=== PATIENT | female | born 1945 | race Caucasian/White ===

== ENCOUNTER 2020-03-28 09:24 | Outpatient (REF) | payer MEDICARE, SELFPAY ==
[2020-03-28 11:46] LABS: Alanine Aminotransferase 32 U/L (0-31); Albumin Level 4.4 g/dL (3.5-5.0); Alkaline Phosphatase 86 U/L (39-117); Anion Gap 15 (12-20); Aspartate Amino Transferase 40 U/L (5-31); Bilirubin Total 0.5 mg/dL (0.0-1.0); Blood Urea Nitrogen 32 mg/dL (9-16); Calcium 9.3 mg/dL (8.4-10.2); Carbon Dioxide 27 mmol/L (22-29); Chloride 102 mmol/L (96-108); Cholesterol 201 mg/dL; Estimated Glomerular Filt Rate 35; Glucose Fasting 104 mg/dL (60-99); HDL Cholesterol 79 mg/dL; LDL Cholesterol Calculated 105 mg/dl; Sodium 139 mmol/L (135-145); Total Protein 7.1 g/dL (6.5-8.0); Triglycerides 89 mg/dL
[2020-03-28 12:08] LABS: Hematocrit 32.4 % (37-47); Hemoglobin 10.5 g/dl (12.0-16.0); Mean Corpuscular HGB Conc 32.4 g/dl (31.0-35.0); Mean Corpuscular Hemoglobin 33.3 pg (27.0-33.0); Mean Corpuscular Volume 102.9 fL (80-98); Mean Platelet Volume 11.5 fL (9.4-12.3); Platelet Count 168 X10*3/uL (160-400); Red Blood Count 3.15 X10*6/uL (4.20-5.50); Red Cell Distribution Width 13.2 % (11.0-16.0)
[2020-03-28 12:09] LABS: Thyroid Stimulating Hormone 1.57 mIU/mL (0.32-4.0); WBC ABN SCTR FOR CBC 1
[2020-03-28 12:49] LABS: White Blood Count 5.6 X10*3/uL (4.8-10.8)
[2020-03-28 12:57] LABS: Lymphocytes Absolute Manual 2.3 X10*3/uL (0.6-4.8); Lymphocytes Percent Manual 41 % (20-40); Monocytes Absolute Manual 1.1 X10*3/uL (0.0-1.2); Monocytes Percent Manual 19 % (2-11); Neutrophils Percent Manual 40 % (45-73)
[2020-03-28 12:58] LABS: Band Neutrophils Percent 0 % (3-5); Neutrophils Absolute Manual 2.2 X10*3/uL (2.2-7.9); Platelet Estimate NORMAL (NORMAL)
[2020-03-28 12:59] LABS: Hypochromasia 1+; Macrocytosis 1+; Platelet Morphology Comment NORMAL; RBC Morphology NOTED
== END 2020-03-28 09:25 | disposition home or self-care (01) ==
LOC: HO.HMGCLDS 09:24
PROVIDERS: PCP Internal Medicine; Visit Provider Internal Medicine
DX: I10 Essential (primary) hypertension (principal); I87.2 Venous insufficiency (chronic) (peripheral)
CPT/HCPCS: 36415; 80053; 80061; 84443; 85007; 85025; 85027

== ENCOUNTER 2020-05-30 10:20 | Outpatient (REF) | payer MEDICARE, SELFPAY ==
[2020-05-30 11:28] LABS: Eosinophils Percent Auto 0.2 % (0-4); Hematocrit 31.6 % (37-47); Hemoglobin 10.1 g/dl (12.0-16.0); Imm Gran Abs Auto 0.09 X10*3/uL (0.00-0.03); Imm Gran Pct Auto 1.5 % (0.0-0.4); Lymphocytes Absolute Auto 2.8 X10*3/uL (1.2-4.9); Lymphocytes Percent Auto 46.2 % (20-40); MANUAL DIFF FLAG SCAN; Mean Corpuscular Hemoglobin 31.8 pg (27.0-33.0); Mean Corpuscular Volume 99.4 fL (80-98); Mean Platelet Volume 11.6 fL (9.4-12.3); Monocytes Absolute Auto 1.2 X10*3/uL (0.1-1.2); Monocytes Percent Auto 20.2 % (2-11); Neutrophils Absolute Auto 1.9 X10*3/uL (2.0-8.3); Neutrophils Percent Auto 31.9 % (45-73); Platelet Count 157 X10*3/uL (160-400); Red Blood Count 3.18 X10*6/uL (4.20-5.50); Red Cell Distribution Width 13.7 % (11.0-16.0); SCAN SMEAR FLAG 1
[2020-05-30 11:51] LABS: Alanine Aminotransferase 18 U/L (0-31); Albumin Level 4.2 g/dL (3.5-5.0); Alkaline Phosphatase 96 U/L (39-117); Anion Gap 18 (12-20); Aspartate Amino Transferase 19 U/L (5-31); Bilirubin Total 0.5 mg/dL (0.0-1.0); Blood Urea Nitrogen 19 mg/dL (9-16); Calcium 8.6 mg/dL (8.4-10.2); Carbon Dioxide 21 mmol/L (22-29); Chloride 108 mmol/L (96-108); Estimated Glomerular Filt Rate 52; Glucose Random 112 mg/dL (60-115); Potassium 4.5 mmol/l (3.3-5.1); Sodium 142 mmol/L (135-145)
[2020-05-30 12:21] LABS: Folate 3.9 ng/mL (> or = 4.0); Vitamin B12 269 pg/mL (200-900)
[2020-05-30 12:29] LABS: SLIDE REVIEW VERIFIED
[2020-05-30 14:12] LABS: Glucose Urine UA NEG (NEG); Leukocyte Esterase Urine 1+ (NEG); Nitrite Urine POS (NEG); Specific Gravity - Urine 1.025 (1.005-1.025); Urine Blood NEG (NEG); Urine Ketones NEG (NEG); Urine Protein NEG (NEG-TRACE)
[2020-05-30 14:14] LABS: Appearance Urine HAZY; Color Urine YELLOW
[2020-05-30 14:24] LABS: Bacteria Urine 3+ /LPF; RBC Urine 0 /HPF (0); Squamous Epithelial Cell Urine 4+ /LPF
== END 2020-05-30 10:21 | disposition home or self-care (01) ==
LOC: HO.HMGCLDS 10:20
PROVIDERS: PCP Internal Medicine; Visit Provider Internal Medicine
DX: I87.2 Venous insufficiency (chronic) (peripheral) (principal); I10 Essential (primary) hypertension; E66.01 Morbid (severe) obesity due to excess calories
CPT/HCPCS: 36415; 80053; 81001; 82607; 82746; 85025

== ENCOUNTER 2020-11-05 08:54 | Day surgery (SDC) | payer MEDICARE, SELFPAY ==
[2020-10-30 13:04] VITALS: BMI 36.8
--- NOTE | 2020-10-31 15:24 | MHC.SHP ---
Pre-Procedural Eval Section A The patient is an INPATIENT: No The History & Physical has been completed within 30 days and I have reviewed it.: Yes Section B Chief Complaint: Cataract Right Eye Allergies: Allergies Allergy/AdvReac Type Severity Reaction Status Date / Time Sulfa (Sulfonamide Allergy Unknown HIVES Unverified 10/30/20 12:55 Antibiotics) [SULFA (SULFONAMIDE ANTIBIOTICS)] Plan Diagnosis/Plan: Unchanged I have reviewed the history and physical and performed a pertinent physical examination on my patient. No changes have occurred unless specified.
--- NOTE | 2020-11-02 09:32 | P.CONAN_ITS ---
Documented by User: Sybil Ramseyney 11/02/20 09:34 HPI - Anesthesia Eval Consult details Narrative: 75yo F for Right Cataract Extraction IOL Insertion PCP cleared No previous cataract on record PMFSH Past Medical History Medical History Basal cell carcinoma (BCC) of face CAD (coronary artery disease) COVID-19 vaccine series completed Elevated cholesterol Glaucoma HTN (hypertension) Low back pain Neuropathy Obesity Osteoarthritis Osteopenia Spinal stenosis Venous insufficiency Surgical History Surgical History History of bilateral YAG laser iridotomy History of lumpectomy of left breast History of surgery History of total right knee replacement (TKR) Hx of arthroscopy of left knee Hx of cholecystectomy S/p bilateral myringotomy with tube placement Social History Social History Are you a primary career orientation teacher to a significant other at home: No Do you presently have visiting nurse or other home services: No Patient Tobacco Use Status: Former Tobacco user Quit Date: 37 yrs ago Tobacco use type: Cigarette Use of substances other than those prescribed or required for medical reasons: No Have you been hit, kicked, punched, or otherwise hurt by someone within the past year? If so, by whom?: No Are you DNR?: No Advance Directives: No Advance Directives Information Provided: No Advance Directives on File: No Recently lost weight without trying: No Eating poorly because of decreased appetite: No Nutrition Risks: No Nutritional Risk Patient : No Meds Allergies Allergy/AdvReac Type Severity Reaction Status Date / Time Sulfa (Sulfonamide Allergy Unknown HIVES Verified 11/05/20 09:47 Antibiotics) [SULFA (SULFONAMIDE ANTIBIOTICS)] Home Medications Medication Instructions Recorded Confirmed Last Taken Type aspirin [Aspir-81] 81 mg PO DAILY 10/30/20 10/30/20 Unknown History cholestyramine-aspartame 1 packet PO DAILY 10/30/20 10/30/20 Unknown History [Prevalite] furosemide 2 tab PO DAILY 10/30/20 10/30/20 Unknown History ibuprofen 1 tab PO TID PRN 10/30/20 10/30/20 Unknown History lisinopril 1 tab PO DAILY 10/30/20 10/30/20 11/05/20 07:15 History multivitamin 1 tab PO DAILY 10/30/20 10/30/20 Unknown History Exam Exam Date and Time: November 02, 2020 0932 Height,Weight and Vital Signs: Height 5 ft 3 in Weight 94.347 kg Assessment and Plan Assessment Anesthesia Assessment: Chart Reviewed Documented by User: Rishi Sanchez 11/05/20 09:50 PMFSH Past Medical History Medical History Basal cell carcinoma (BCC) of face CAD (coronary artery disease) COVID-19 vaccine series completed Elevated cholesterol Glaucoma HTN (hypertension) Low back pain Neuropathy Obesity Osteoarthritis Osteopenia Spinal stenosis Venous insufficiency Surgical History Surgical History History of bilateral YAG laser iridotomy History of lumpectomy of left breast History of surgery History of total right knee replacement (TKR) Hx of arthroscopy of left knee Hx of cholecystectomy S/p bilateral myringotomy with tube placement Social History Social History Are you a primary career orientation teacher to a significant other at home: No Do you presently have visiting nurse or other home services: No Patient Tobacco Use Status: Former Tobacco user Quit Date: 37 yrs ago Tobacco use type: Cigarette Use of substances other than those prescribed or required for medical reasons: No Have you been hit, kicked, punched, or otherwise hurt by someone within the past year? If so, by whom?: No Are you DNR?: No Advance Directives: No Advance Directives Information Provided: No Advance Directives on File: No Recently lost weight without trying: No Eating poorly because of decreased appetite: No Nutrition Risks: No Nutritional Risk Patient : No Meds Allergies Allergy/AdvReac Type Severity Reaction Status Date / Time Sulfa (Sulfonamide Allergy Unknown HIVES Verified 11/05/20 09:47 Antibiotics) [SULFA (SULFONAMIDE ANTIBIOTICS)] Home Medications Medication Instructions Recorded Confirmed Last Taken Type aspirin [Aspir-81] 81 mg PO DAILY 10/30/20 10/30/20 Unknown History cholestyramine-aspartame 1 packet PO DAILY 10/30/20 10/30/20 Unknown History [Prevalite] furosemide 2 tab PO DAILY 10/30/20 10/30/20 Unknown History ibuprofen 1 tab PO TID PRN 10/30/20 10/30/20 Unknown History lisinopril 1 tab PO DAILY 10/30/20 10/30/20 11/05/20 07:15 History multivitamin 1 tab PO DAILY 10/30/20 10/30/20 Unknown History Exam Airway Mallampati Class: II TM Dist: >3cm Neck ROM: Full Loose/Missing/Broken Teeth: No Heart: rrr+[id number] Lungs: cta b/l Assessment and Plan Assessment Anesthesia Assessment: Anesthesia Plan Discussed, PAT Visit and Chart Reviewed Final Anesthetic Review NPO: Yes ASA Class: II Final Preanesthetic Review: No Changes in Pt Med Stat, Meds/Allgs Chart Reviewed, Consent Obtained/Reviewed and Anes Risks/Benef Reviewed Patient Risk: Low Procedure Risk: Low Assessment/Block/Sedation in SS: Assess/Block/Sedation-SS Anesthetic Plan Anesthetic Plan: MAC: and Agree w/ Assess. and Plan Disposition: Standard PACU
[2020-11-05 09:49] VITALS: BP 177/74; PULSE 91; RESP 18; TEMP 36.4; O2SAT 98
[2020-11-05] MEDS: Tetracaine HCl/PF 0.5% Oph Sol 4 ML DROPS 1 DROP EYE-RIGHT (10:03)
[2020-11-05] MEDS: Tropicamide 1 % Ophth Sol 3 ML BTL 1 DROP EYE-RIGHT ×3 (10:04→10:11)
[2020-11-05] MEDS: Phenylephrine HCL 2.5% Oph SoL 2 ML BOTTLE 1 DROP EYE-RIGHT ×3 (10:06→10:14)
[2020-11-05] MEDS: Lactated Ringers 500 ML 50 ML IV (10:15)
--- NOTE | 2020-11-05 10:36 | P.PCNO_ITS ---
Ophthalmology Procedure Procedure Date of Service: 11/05/20 Ophthalmology Viscoelastic: Healon Duet Dual Pack Pro Ophthalmology Lenses: TECISRAEL [id number] (27) Procedure Notes: PREOPERATIVE DIAGNOSIS: Decreased visual acuity right eye secondary to cataract POSTOPERATIVE DIAGNOSIS: Same PROCEDURE: Right cataract extraction with intraocular lens insertion & Synichialysis with Malyugin Ring SURGEON: James Guevara M.D. ANESTHESIA: Topical/MAC ESTIMATED BLOOD LOSS: None COMPLICATIONS: None After obtaining informed consent, the patient was brought to the operating room suite and placed in the supine position. After adequate sedation per anesthesia, topical drops of Tetracaine were given to the right eye. The eye was then prepped and draped in the usual sterile fashion. The operating room microscope was then positioned over the operative eye and a lid speculum placed. A paracentesis was created. Synichiae prevented pupil dilation, 1% MPF Lidocaine was instilled into the anterior chamber followwed by placement of the Mallugin Ring. Viscoelastic was then instilled into the anterior chamber. A three plane incision was then created temporally, utilizing a 2.85 mm keratome. Capsulotomy forceps were then utilized to create a circular tear capsulotomy. Hydrodissecti on and hydrodelineation were carried out until adequate mobilization of the nucleus occurred. Phacoemulsification was then utilized to remove the dense central nucleus followed by removal of the cortical material utilizing the automated aspiration irrigation unit. Viscoelastic was instilled into the posterior capsular bag followed by placement of a posterior chamber intraocular lens without difficulty.The Malyugin Ring was removed. The residual Viscoelastic was then removed \utilizing the automated IAmachine. The wound was checked and found to be watertight. The patient tolerated theprocedure well and the lid speculum was removed. Intracameral injection of Vigamox0.1 mL followed by a subtenon injection of Kenalog-40 0.2 mL were administered. Thepatient will be seen in the a.m.
[2020-11-05 11:05] VITALS: BP 178/80; PULSE 85; RESP 16; TEMP 36.1; O2SAT 99
== END 2020-11-05 11:19 | disposition home or self-care (01) ==
PROVIDERS: PCP Internal Medicine; Visit Provider Ophthalmology
PROC: (CPT 66985; principal; 2020-11-05 11:20)
DX: H25.11 Age-related nuclear cataract, right eye (principal); I10 Essential (primary) hypertension; Z88.2 Allergy status to sulfonamides
CPT/HCPCS: 66982; J3300; V2632

== ENCOUNTER 2020-11-19 09:50 | Day surgery (SDC) | payer MEDICARE, SELFPAY ==
[2020-10-30 13:12] VITALS: BMI 36.8
--- NOTE | 2020-11-15 08:00 | MHC.SHP ---
Pre-Procedural Eval Section A The patient is an INPATIENT: No The History & Physical has been completed within 30 days and I have reviewed it.: Yes Section B Chief Complaint: Cataract Left Eye Allergies: Allergies Allergy/AdvReac Type Severity Reaction Status Date / Time Sulfa (Sulfonamide Allergy Unknown HIVES Verified 11/05/20 09:47 Antibiotics) [SULFA (SULFONAMIDE ANTIBIOTICS)] Plan Diagnosis/Plan: Unchanged I have reviewed the history and physical and performed a pertinent physical examination on my patient. No changes have occurred unless specified.
[2020-11-19 12:24] VITALS: BP 136/69; PULSE 73; RESP 18; TEMP 36.1; O2SAT 99
[2020-11-19] MEDS: Tetracaine HCl/PF 0.5% Oph Sol 4 ML DROPS 1 DROP EYE-LEFT (12:43)
[2020-11-19] MEDS: Tropicamide 1 % Ophth Sol 3 ML BTL 1 DROP EYE-LEFT ×3 (12:44→12:56)
--- NOTE | 2020-11-19 12:45 | P.CONAN_ITS ---
[facility] Past Medical History Medical History Basal cell carcinoma (BCC) of face CAD (coronary artery disease) COVID-19 vaccine series completed Elevated cholesterol Glaucoma HTN (hypertension) Low back pain Neuropathy Obesity Osteoarthritis Osteopenia Spinal stenosis Venous insufficiency Surgical History Surgical History History of bilateral YAG laser iridotomy History of lumpectomy of left breast History of surgery History of total right knee replacement (TKR) Hx of arthroscopy of left knee Hx of cholecystectomy S/p bilateral myringotomy with tube placement Social History Social History Are you a primary primary care provider to a significant other at home: No Do you presently have visiting nurse or other home services: No Patient Tobacco Use Status: Former Tobacco user Quit Date: 37 yrs ago Tobacco use type: Cigarette Use of substances other than those prescribed or required for medical reasons: No Have you been hit, kicked, punched, or otherwise hurt by someone within the past year? If so, by whom?: No Are you DNR?: No Advance Directives: No (unknown) Advance Directives Information Provided: No Recently lost weight without trying: No Eating poorly because of decreased appetite: No Nutrition Risks: No Nutritional Risk Meds Allergies Allergy/AdvReac Type Severity Reaction Status Date / Time Sulfa (Sulfonamide Allergy Intermediate HIVES Verified 11/19/20 12:08 Antibiotics) [SULFA (SULFONAMIDE ANTIBIOTICS)] Active Medications: Current Medications Generic Name Dose Route Start Last Admin Trade Name Freq PRN Reason Stop Dose Admin Lactated Ringer's 500 mls @ 50 mls/hr 11/19/20 12:45 Lr IV 11/19/20 22:44 .Q10H KEVIN Povidone Iodine 1 appl 11/19/20 12:05 Povidone Iodine 5 % Ophth Soln 30 Ml Bottle EYE-LEFT PREOP PRN Pre-Op Surgical Implant Prophy Home Medications Medication Instructions Recorded Confirmed Last Taken Type aspirin [Aspir-81] 81 mg PO DAILY 10/30/20 10/30/20 11/18/20 07:30 History cholestyramine-aspartame 1 packet PO DAILY 10/30/20 10/30/20 Unknown History [Prevalite] furosemide 2 tab PO DAILY 10/30/20 10/30/20 Unknown History ibuprofen 1 tab PO TID PRN 10/30/20 10/30/20 11/01/20 History lisinopril 1 tab PO DAILY 10/30/20 10/30/20 11/19/20 07:30 History multivitamin 1 tab PO DAILY 10/30/20 10/30/20 Unknown History Exam Exam Date and Time: November 19, 2020 1245 Height,Weight and Vital Signs: Height 5 ft 3 in Weight 94.347 kg Last Vital Signs Temp 97.0 F 11/19/20 12:24 Pulse 73 11/19/20 12:24 Resp 18 11/19/20 12:24 BP 136/69 11/19/20 12:24 Pulse Ox 99 11/19/20 12:24 Airway Mallampati Class: II TM Dist: >3cm Neck ROM: Full Heart: rrr Lungs: cta Assessment and Plan Assessment Anesthesia Assessment: Anesthesia Plan Discussed and Chart Reviewed Final Anesthetic Review NPO: Yes ASA Class: II Final Preanesthetic Review: No Changes in Pt Med Stat and Consent Obtained/Reviewed Patient Risk: Intermediate Procedure Risk: Intermediate Anesthetic Plan Anesthetic Plan: MAC: Disposition: Standard PACU
[2020-11-19] MEDS: Phenylephrine HCL 2.5% Oph SoL 2 ML BOTTLE 1 DROP EYE-LEFT ×3 (12:48→13:00)
[2020-11-19] MEDS: Lactated Ringers 500 ML 50 ML IV (12:59)
--- NOTE | 2020-11-19 13:47 | HO.PNOPHT ---
Ophthalmology Procedure Procedure Date of Service: 11/19/20 Ophthalmology Viscoelastic: Healon Duet Dual Pack Pro Ophthalmology Lenses: TECISRAEL [id number] (28.5) Procedure Notes: PREOPERATIVE DIAGNOSIS: Decreased visual acuity left eye secondary to cataract POSTOPERATIVE DIAGNOSIS: Same PROCEDURE: Left cataract extraction with intraocular lens insertion SURGEON: James Guevara M.D. ANESTHESIA: Topical/MAC ESTIMATED BLOOD LOSS: None COMPLICATIONS: None After obtaining informed consent, the patient was brought to the operation room suite and placed in the supine position. After adequate sedation per anesthesia, topical drops of Tetracaine were given to the left eye. The eye was then prepped and draped in the usual sterile fashion. The operating room microscope was then positioned over the operative eye and a lid speculum placed. A paracentesis was created. Viscoelastic was then instilled into the anterior chamber. A three plane incision was then created temporally, utilizing a 2.85 mm keratome. Capsulotomy forceps were then utilized to create a circular tear capsulotomy. Hydrodissection and hydrodelineation were carried out until adequate mobilization of the nucleus occurred. Phacoemulsification was then utilized to remove the dense central nucleus followed by removal of the cortical material utilizing the automated aspiration irrigation unit. Viscoat elastic was instilled into the posterior capsular bag followed by placement of a posterior chamber intraocular lens without difficulty. The residual Viscoat elastic was then removed utilizing the automated IA machine. The wound was check and found to be watertight. The patient tolerated the procedure well and the lid speculum was removed. Intracameral injection of Vigamox 0.1 mL followed by a subtenon injection of Kenalog-40 0.2 mL were administered. The patient will be seen in the a.m.
[2020-11-19 14:13] VITALS: BP 156/83; PULSE 68; RESP 16; TEMP 36.1; O2SAT 100
== END 2020-11-19 14:32 | disposition home or self-care (01) ==
PROVIDERS: PCP Internal Medicine; Visit Provider Ophthalmology
PROC: (CPT 66985; principal; 2020-11-19 13:10)
DX: H25.12 Age-related nuclear cataract, left eye (principal); H40.213 Acute angle-closure glaucoma, bilateral; H52.4 Presbyopia; I10 Essential (primary) hypertension; I87.2 Venous insufficiency (chronic) (peripheral); Z66 Do not resuscitate; E53.8 Deficiency of other specified B group vitamins; Z79.82 Long term (current) use of aspirin; Z79.899 Other long term (current) drug therapy; Z88.2 Allergy status to sulfonamides; Z87.891 Personal history of nicotine dependence
CPT/HCPCS: 66984; J2250; J3010; J3300; V2632

== ENCOUNTER 2021-01-31 11:42 | Outpatient (REF) | payer MEDICARE, SELFPAY ==
--- NOTE | ~2021-01-31 | MM_ITS ---
EXAMINATION: MM SCREENING DIGITAL BREAST TOMOSYNTHESIS, BILATERAL CLINICAL INFORMATION: Screening. Asymptomatic. The lifetime risk of breast cancer based on the Tyrer-Cuzick Model is 2%. COMPARISON: Mammography: 08/05/2018, 07/21/2017, 07/06/2017, 06/05/2016; targeted left breast ultrasound 07/21/2017 TECHNIQUE: Digital breast tomosynthesis is performed in both the craniocaudal and mediolateral oblique views along with computer-aided detection (CAD). Synthesized 2D images are generated from the tomosynthesis. FINDINGS: There are scattered areas of fibroglandular density (ACR BI-RADS breast composition Category b). There is a fine fibronodular parenchymal pattern similar to prior exams. There is no developing density or architectural abnormality or significant mass. Scattered bilateral round and vascular calcifications are again seen. There is a group of uniform benign-appearing round calcifications mid upper outer right breast. The axilla and skin contours are unremarkable. There are no significant changes from prior study. MM/MM tomosynthesis screening BI IMPRESSION: No mammographic evidence of malignancy. ASSESSMENT: BI-RADS 2: Benign RECOMMENDATION: Routine annual mammography screening. This patient's information was entered into a reminder system with a target due date for their next mammogram.
== END 2021-01-31 11:43 | disposition home or self-care (01) ==
LOC: HO.MAMMO 11:42
PROVIDERS: Visit Provider Internal Medicine
DX: Z12.31 Encounter for screening mammogram for malignant neoplasm of breast (principal)
CPT/HCPCS: 77063; 77067

== ENCOUNTER 2021-02-01 11:19 | Outpatient (REF) | payer MEDICARE, SELFPAY ==
[2021-02-01 14:22] LABS: MANUAL DIFF FLAG NO
[2021-02-01 14:27] LABS: Eosinophils Percent Auto 0.2 % (0-4); Hematocrit 30.4 % (37-47); Hemoglobin 9.8 g/dl (12.0-16.0); Imm Gran Abs Auto 0.06 X10*3/uL (0.00-0.03); Imm Gran Pct Auto 0.9 % (0.0-0.4); Lymphocytes Absolute Auto 2.4 X10*3/uL (1.2-4.9); Lymphocytes Percent Auto 37.5 % (20-40); Mean Corpuscular HGB Conc 32.2 g/dl (31.0-35.0); Mean Corpuscular Hemoglobin 30.8 pg (27.0-33.0); Mean Corpuscular Volume 95.6 fL (80-98); Mean Platelet Volume 12.9 fL (9.4-12.3); Monocytes Absolute Auto 1.1 X10*3/uL (0.1-1.2); Monocytes Percent Auto 16.8 % (2-11); Neutrophils Absolute Auto 2.9 X10*3/uL (2.0-8.3); Neutrophils Percent Auto 44.6 % (45-73); Platelet Count 225 X10*3/uL (160-400); Red Blood Count 3.18 X10*6/uL (4.20-5.50); Red Cell Distribution Width 13.2 % (11.0-16.0); White Blood Count 6.5 X10*3/uL (4.8-10.8)
[2021-02-01 14:47] LABS: B Type Natriuretic Peptide 107 pg/mL (<100)
[2021-02-01 14:58] LABS: Alanine Aminotransferase 17 U/L (0-31); Albumin Level 4.7 g/dL (3.5-5.0); Alkaline Phosphatase 83 U/L (39-117); Anion Gap 17 (12-20); Aspartate Amino Transferase 18 U/L (5-31); Bilirubin Total 0.5 mg/dL (0.0-1.0); Blood Urea Nitrogen 59 mg/dL (9-16); Calcium 10.3 mg/dL (8.4-10.2); Carbon Dioxide 20 mmol/L (22-29); Chloride 106 mmol/L (96-108); Cholesterol 174 mg/dL; Estimated Glomerular Filt Rate 20; Glucose Fasting 100 mg/dL (60-99); HDL Cholesterol 50 mg/dL; LDL Cholesterol Calculated 107 mg/dl; Sodium 138 mmol/L (135-145); Total Protein 7.4 g/dL (6.5-8.0); Triglycerides 87 mg/dL
[2021-02-01 15:07] LABS: Thyroid Stimulating Hormone 1.11 uIU/mL (0.32-4.0); Vitamin D 25-OH Total 42.6 ng/mL (>30)
[2021-02-01 15:23] LABS: Folate > 20.0 ng/mL (> or = 4.0); Vitamin B12 614 pg/mL (200-900)
== END 2021-02-01 11:20 | disposition home or self-care (01) ==
LOC: HO.HMGCLDS 11:19
PROVIDERS: PCP Internal Medicine; Visit Provider Internal Medicine
DX: I87.2 Venous insufficiency (chronic) (peripheral) (principal); I10 Essential (primary) hypertension; E66.01 Morbid (severe) obesity due to excess calories; E53.8 Deficiency of other specified B group vitamins
CPT/HCPCS: 36415; 80053; 80061; 82306; 82607; 82746; 83880; 84443; 85025

== ENCOUNTER 2021-02-20 11:50 | Outpatient (REF) | payer MEDICARE, SELFPAY ==
[2021-02-20 13:53] LABS: MANUAL DIFF FLAG NO
[2021-02-20 14:03] LABS: Basophils Percent Auto 0.1 % (0-2); Eosinophils Percent Auto 0.5 % (0-4); Hemoglobin 8.9 g/dl (12.0-16.0); Imm Gran Abs Auto 0.08 X10*3/uL (0.00-0.03); Lymphocytes Percent Auto 50.8 % (20-40); Mean Corpuscular Hemoglobin 31.4 pg (27.0-33.0); Mean Corpuscular Volume 95.4 fL (80-98); Mean Platelet Volume 12.8 fL (9.4-12.3); Monocytes Absolute Auto 1.3 X10*3/uL (0.1-1.2); Monocytes Percent Auto 16.9 % (2-11); Neutrophils Absolute Auto 2.4 X10*3/uL (2.0-8.3); Neutrophils Percent Auto 30.7 % (45-73); Platelet Count 122 X10*3/uL (160-400); Red Blood Count 2.83 X10*6/uL (4.20-5.50); Red Cell Distribution Width 13.8 % (11.0-16.0); White Blood Count 7.9 X10*3/uL (4.8-10.8)
[2021-02-20 14:21] LABS: Alanine Aminotransferase 13 U/L (0-31); Albumin Level 4.2 g/dL (3.5-5.0); Alkaline Phosphatase 91 U/L (39-117); Anion Gap 18 (12-20); Aspartate Amino Transferase 14 U/L (5-31); Bilirubin Total 0.3 mg/dL (0.0-1.0); Blood Urea Nitrogen 58 mg/dL (9-16); Calcium 9.9 mg/dL (8.4-10.2); Carbon Dioxide 18 mmol/L (22-29); Chloride 107 mmol/L (96-108); Estimated Glomerular Filt Rate 25; Glucose Random 87 mg/dL (60-115); Potassium 5.1 mmol/L (3.3-5.1); Sodium 138 mmol/L (135-145); Total Protein 6.9 g/dL (6.5-8.0)
== END 2021-02-20 11:51 | disposition home or self-care (01) ==
LOC: HO.HMGCLDS 11:50
PROVIDERS: PCP Internal Medicine; Visit Provider Internal Medicine
DX: I10 Essential (primary) hypertension (principal); I87.2 Venous insufficiency (chronic) (peripheral)
CPT/HCPCS: 36415; 80053; 85025

== ENCOUNTER → 2021-02-22 09:36 | Outpatient (REF) | payer MEDICARE, SELFPAY ==
--- NOTE | 2021-02-22 09:30 | CA_ITS ---
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 The visually estimated ejection fraction is between 60-65%. - There is mild aortic valve stenosis. Findings Left Ventricle Normal left ventricular cavity size. There is mildly increased left ventricular wall thickness. The left ventricular systolic function is normal. The visually estimated ejection fraction is between 60-65%. There is no evidence of regional wall motion abnormalities. Diastolic function is normal for age. Right Ventricle Normal right ventricular cavity size and systolic function. Atria Both atria are normal in size. Aortic Valve There is mild calcification of the aortic valve. There is mild aortic valve stenosis. The peak aortic velocity is 2.50 m/s with a calculated peak gradient of 25 mmHg. The mean gradient is 14 mmHg. The aortic valve area is 1.47 cm2. There is trace (trivial) aortic valve regurgitation. Mitral Valve The mitral valve appears normal. There is trace mitral valve regurgitation. There is no mitral valve stenosis. Pulmonic Valve The pulmonic valve was not well visualized. Tricuspid Valve Normal tricuspid valve structure. There is trace tricuspid valve regurgitation. The pulmonary artery systolic pressure is normal. Great Vessels The asc aorta is normal in size. Venous The inferior vena cava is normal in size and collapses greater than 50% with inspiration. Pericardium/Pleural There is no evidence of pericardial effusion. Prior Study Comparison No significant change compared to prior study dated: 01/12/2015. Measurements 2D Linear Measurements IVSd: 1.22 0.6-0.9/0.6-1.0 cm LVIDd: 3.99 3.9-5.3/4.2-5.9 cm LVIDd Index: 2.07 2.4-3.2/2.2-3.1 cm/m2 LVIDs: 2.34 2.0-3.6 cm LVPWd: 1.27 0.7-1.1 cm Ao Root: 3.20 2.1-3.5 cm LA Diam: 3.60 2.7-3.8/3.0-4.0 cm LAIDs Index: 1.87 1.5-2.3 cm/m2 LV Mass: 216.92 67-162/88-224 g LV Mass Index: 112.39 43-95/49-115 g/m2 LVOT Diam: 2.00 3.0+(-)1.3 cm 2D Systolic Function EF 4C: 55.90 >55% EF 2C: 60.10 >55% EF BiP: 56.90 >55% Mitral Valve MV Pk E: 0.51 MV PK A: 0.73 MV Decel Time: 342.00 E/A: 0.70 E'Lateral: 6.42 E'Medial: 5.77 E/E' Med: 8.80 E/E' Lat: 7.90 PHT: 100.00 MVA PHT: 2.[address] [employer] [place] [employer]: 1.49 Aortic Valve AoV Pk Reinier: 2.50 AoV Mn Reinier: 1.72 AoV VTI: 0.55 AoV Pk Grad: 25.00 Aov Mn Grad: 14.00 ADA Cont.VTI: 1.47 LVOT LVOT Pk Reinier: 0.99 LVOT Mn Reinier: 0.64 LVOT VTI: 0.26 LVOT Pk Grad: 4.00 LVOT Mn Grad: 2.00 LVOT Diam: 2.00 LVOT Area: 3.14 Diastolic Function MV Pk E: 0.51 MV Pk A: 0.73 E/A: 0.70 E'Medial: 5.77 E/E' Med: 8.80 E' Laterial: 6.42 E/E' Lat: 7.90 Right Ventricle TAPSE (mm): 28.00 TVS' Reinier: 11.00 Tricuspid Valve TR Pk Reinier: 2.02 TR Pk Grad: 16.00 Great Vessels Aorta Ao Root-2D: 3.20 2.0-3.7 cm Ao Asc: 3.70 2.1-3.4 cm Pulmonary Valve PV Pk Reinier: 1.02 Peak PV Grad: 4.00 Updated in Other Vendor System with Status of Final Dante Koehler MD electronically signed on 02/22/2021 2:01:34 PM with status of Final
== END ==
LOC: HO.CARD 09:36
PROVIDERS: Visit Provider Internal Medicine
DX: I87.2 Venous insufficiency (chronic) (peripheral) (principal); I10 Essential (primary) hypertension; E66.01 Morbid (severe) obesity due to excess calories
CPT/HCPCS: 93306

== ENCOUNTER → 2021-04-01 14:53 | Outpatient (BNV) | payer MEDICARE, SELFPAY | PROVIDERS: PCP Internal Medicine; Referring Provider Internal Medicine; Visit Provider Internal Medicine | DX: D64.9 Anemia, unspecified (principal) | CPT/HCPCS: 99203; 99213; 99214; 99215 ==

== ENCOUNTER 2021-04-24 08:59 | Outpatient (REF) | payer MEDICARE, SELFPAY ==
--- NOTE | ~2021-04-24 | US_ITS ---
EXAMINATION: US ABDOMEN COMPLETE CLINICAL INFORMATION: Disorder of kidney and ureter. Renal insufficiency. CLL. COMPARISON: None TECHNIQUE: Real-time imaging of the abdominal viscera. FINDINGS: PANCREAS: Normal. ABDOMINAL AORTA: The proximal, mid, and distal segments are normal in caliber. INFERIOR VENA CAVA: Visualized portions are normal. LIVER: The liver is normal in size. The liver contour is normal. There is mild increased liver echogenicity. No focal hepatic lesion. There is no intrahepatic biliary duct dilatation seen. GALLBLADDER: Surgically absent. COMMON BILE DUCT: Normal in caliber measuring 0.6 cm in diameter. RIGHT KIDNEY: No hydronephrosis or renal calculi. The kidney measures 9.7 cm in maximum dimension. There is an anechoic cyst in midpole measuring 2.3 x 2.0 x 2.2 cm. No additional cyst, solid mass or hydronephrosis seen. LEFT KIDNEY: There is mild increased left cortical echogenicity. No hydronephrosis. No renal calculi or focal parenchymal lesions. The kidney measures 9.0 cm in maximum dimension. SPLEEN: Normal. The spleen measures 9.5 cm in maximum dimension. FREE FLUID: None. US/US abdomen complete IMPRESSION: 1. Hepatic steatosis without focal lesion. 2. Midpole right renal cyst. Echogenic right renal cortex. 3. No splenomegaly. 4. Rest of the abdominal ultrasound is unremarkable.
== END 2021-04-24 09:00 | disposition home or self-care (01) ==
LOC: HO.HMGCX 08:59
PROVIDERS: PCP Internal Medicine; Visit Provider Internal Medicine
DX: N28.9 Disorder of kidney and ureter, unspecified (principal)
CPT/HCPCS: 76700

== ENCOUNTER 2021-05-03 12:02 | Day surgery (SDC) | payer MEDICARE, SELFPAY ==
--- NOTE | ~2021-05-03 | CT_ITS ---
PROCEDURE: CT GUIDED BIOPSY CLINICAL INFORMATION: CLL COMPARISON: None TECHNIQUE: Following explaining CT bone marrow biopsy procedure, benefits and risk, a written consent was obtained. Patient was placed prone and CT imaging was performed. Markers were placed along the posterior iliac spine on the left. An optimal site was selected and marked on the skin. Marked site was cleaned and draped in the sterile manner. 1% lidocaine was administered at the puncture site. Through a small skin incision a 16-gauge guide needle was advanced from right to left approach into the left posterior iliac spine. The needle was drilled into the proximal posterior iliac spine bone marrow. Two bone marrow aspirations were performed with EDTA and heparin in each syringe. Subsequently a core biopsy was obtained coaxially. Postprocedure the guide needle was withdrawn and complete hemostasis achieved at puncture site. Conscious sedation was administered for 18 minutes with the patient monitored by the IR nurse and radiologist. This CT examination was performed using dose optimization techniques as appropriate, variously including the following: *Automated exposure control *Adjustment of mA and/or kV according to patient size (this includes techniques or standardized protocols for targeted exams where dose is matched to indication/reason for exam; i.e. extremities or head) *Use of iterative reconstruction technique DLP: 187 mGy-cm FINDINGS: On preliminary prone CT imaging no gross bony abnormality seen involving the pelvic or the sacral bones. No abnormality seen within the pelvis soft tissues except for mild sigmoid diverticulosis. CT fluoroscopy-guided two bone marrow aspirations and a core biopsy performed. CT/CT biopsy aspirate bone marrow IMPRESSION: Successful CT fluoroscopy-guided two bone marrow aspirations and core biopsy performed through the left posterior iliac crest area.
[2021-05-03 12:12] VITALS: BMI 34.3
[2021-05-03 12:24] LABS: Prothrombin Time 11.1 SEC (9.9-13.0)
[2021-05-03 12:27] LABS: Partial Thromboplastin Time 34.2 SEC (24.1-38.0)
[2021-05-03 14:58] VITALS: BP 122/52; PULSE 67; RESP 16; TEMP 36.3; O2SAT 99
[2021-05-03 15:13] VITALS: BP 114/53; PULSE 67; RESP 16; O2SAT 98
[2021-05-03 15:17] LABS: Bone Marrow SEE SEPARATE REPORT
[2021-05-03 15:30] VITALS: BP 129/55; PULSE 65; RESP 16; O2SAT 98
[2021-05-03 15:41] LABS: MANUAL DIFF FLAG NO
[2021-05-03 15:43] LABS: Basophils Percent Auto 0.1 % (0-2); Hematocrit 29.1 % (37.0-47.0); Hemoglobin 9.4 g/dl (12.0-16.0); Imm Gran Abs Auto 0.04 X10*3/uL (0.00-0.03); Imm Gran Pct Auto 0.6 % (0.0-0.4); Lymphocytes Absolute Auto 3.4 X10*3/uL (1.2-4.9); Lymphocytes Percent Auto 48.2 % (20-40); Mean Corpuscular HGB Conc 32.3 g/dl (31.0-35.0); Mean Corpuscular Hemoglobin 30.7 pg (27.0-33.0); Mean Corpuscular Volume 95.1 fL (80.0-98.0); Monocytes Absolute Auto 1.2 X10*3/uL (0.1-1.2); Monocytes Percent Auto 16.2 % (2-11); Neutrophils Absolute Auto 2.5 x10*3/uL (2.0-8.3); Neutrophils Percent Auto 34.9 % (45-73); Platelet Count 219 X10*3/uL (160-400); Red Blood Count 3.06 X10*6/uL (4.20-5.50); Red Cell Distribution Width 13.5 % (11.0-16.0); White Blood Count 7.1 X10*3/uL (4.8-10.8)
[2021-05-03 15:45] VITALS: BP 127/59; PULSE 68; RESP 16; O2SAT 99
[2021-05-03 16:00] VITALS: BP 116/58; PULSE 64; RESP 16; O2SAT 99
[2021-05-03 16:27] VITALS: BP 117/55; PULSE 68; RESP 16; TEMP 36.3; O2SAT 99
== END 2021-05-03 16:30 | disposition home or self-care (01) ==
PROVIDERS: Radiology Diagnostic Radiology; PCP Internal Medicine; Visit Provider Internal Medicine
DX: C91.10 Chronic lymphocytic leukemia of B-cell type not having achieved remission (principal); Z66 Do not resuscitate
CPT/HCPCS: 36415; 38221; 38222; 85025; 85097; 85610; 85730; 88184; 88185; 88237; 88264; 88305; 88311; 88313; 88341; 88342; 99152; J1642; J2250; J3010

== ENCOUNTER 2021-05-07 09:03 | Outpatient (REF) | payer MEDICARE, SELFPAY ==
--- NOTE | ~2021-05-07 | PE_ITS ---
EXAMINATION: Fluorine-18 FDG PET/CT Scan CLINICAL INDICATION: Initial treatment management. CLL, staging. PROCEDURE: 60 minutes following the intravenous administration of 16.5 mCi of fluorine 18 FDG, images from the base of the skull to the mid thighs were obtained using a combined PET/CT scanner with CT scan based attenuation correction. No oral contrast was administered. No intravenous contrast was administered. Transverse, coronal, sagittal, and volume reconstruction projections were obtained. The patient's blood glucose as determined by a finger stick, was 112 mg/dl immediately prior to injection. Total CT exam dose-length product 115.63 mGy-cm * These CT images were obtained using dose optimization techniques as appropriate, variously including the following: Automated exposure control * Adjustment of mA and/or kV according to patient size (this includes techniques or standardized protocols for targeted exams where dose is matched to indication/reason for exam; i.e. extremities or head) * Use of iterative reconstruction technique COMPARISON: No previous PET/CT scan is available for comparison. Limited images from a CT-guided biopsy of the posterior left iliac bone bone marrow dated 05/03/2021 are available for comparison. FINDINGS: (Slice numbers described in this report are numbered superiorly to inferiorly with slice #1 in the head) NECK AND VISUALIZED HEAD: No foci of abnormal FDG activity are noted. The distribution of FDG activity is physiological. There is no cervical lymphadenopathy. THORAX: There are no foci of abnormal FDG activity. No pulmonary nodules are visualized. There is some scarring in the lung apices bilaterally, more prominently on the right, with no associated abnormal FDG activity. There is no pleural or pericardial fluid or pneumothorax. There is no mediastinal, supraclavicular, or axillary lymphadenopathy. ABDOMEN AND PELVIS: There are no foci of abnormal FDG activity in the abdomen or pelvis. There is mild FDG activity throughout the gastrointestinal tract without a suspicious focal component. There is diverticulosis without evidence of diverticulitis. The hollow viscera are otherwise unremarkable. The liver and spleen are unremarkable. The gallbladder has been resected and multiple metallic surgical clips are present in the gallbladder bed. There is a hypodense cyst laterally in the lower pole of the right kidney which is markedly FDG photopenic. The left kidney is slightly smaller in size than the right with some minimal cortical thinning present. The kidneys are otherwise unremarkable. The adrenal glands and pancreas are unremarkable. There is no retroperitoneal, mesenteric, pelvic or inguinal lymphadenopathy. A small fat-containing periumbilical hernia is present. MUSCULOSKELETAL: There are diffuse degenerative changes in the spine. There is mildly increased FDG activity at the L5-S1 disc space associated degenerative disc disease on the CT images. There are no suspicious sclerotic or lytic lesions visualized. VASCULAR: Diffuse vascular calcifications including coronary are noted. PET/PET CT fusion skull to thigh IMPRESSION: No abnormalities suspicious for malignancy are noted. Diffuse vascular calcifications including coronary.
== END 2021-05-07 09:04 | disposition home or self-care (01) ==
LOC: HO.PET 09:03
PROVIDERS: PCP Internal Medicine; Visit Provider Internal Medicine
DX: Z13.89 Encounter for screening for other disorder (principal)

== ENCOUNTER 2022-02-05 11:49 | Outpatient (REF) | payer MEDICARE, SELFPAY ==
--- NOTE | ~2022-02-05 | MM_ITS ---
EXAMINATION: MM SCREENING DIGITAL BREAST TOMOSYNTHESIS, BILATERAL CLINICAL INFORMATION: Screening. Asymptomatic. The lifetime risk of breast cancer based on the Tyrer-Cuzick Model is 2%. COMPARISON: Mammography: 01/31/2021, 08/05/2018, 07/21/2017, 07/06/2017 TECHNIQUE: Digital breast tomosynthesis is performed in both the craniocaudal and mediolateral oblique views along with computer-aided detection (CAD). Synthesized 2D images are generated from the tomosynthesis. FINDINGS: There are scattered areas of fibroglandular density (ACR BI-RADS breast composition Category b). Parenchymal pattern is similar to prior exams. There is fibronodular parenchyma with no interval developing density or architectural abnormality or abnormal calcifications. The axilla are unremarkable. Skin contours are smooth. No significant changes. MM/MM tomosynthesis screening BI IMPRESSION: No mammographic evidence of malignancy. ASSESSMENT: BI-RADS 2: Benign RECOMMENDATION: Routine annual mammography screening. This patient's information was entered into a reminder system with a target due date for their next mammogram.
== END 2022-02-05 11:50 | disposition home or self-care (01) ==
LOC: HO.MAMMO 11:49
PROVIDERS: Visit Provider Internal Medicine
DX: Z12.31 Encounter for screening mammogram for malignant neoplasm of breast (principal)
CPT/HCPCS: 77063; 77067

== ENCOUNTER 2022-02-21 08:34 | Outpatient (REF) | payer MEDICARE, SELFPAY | END 2022-02-21 08:35 | disposition home or self-care (01) | LOC: HO.HMGCLDS 08:34 | PROVIDERS: PCP Internal Medicine; Visit Provider Internal Medicine | DX: Z13.89 Encounter for screening for other disorder (principal) ==

== ENCOUNTER 2022-02-21 09:09 | Outpatient (REF) | payer MEDICARE, SELFPAY ==
--- NOTE | ~2022-02-21 | US_ITS ---
EXAMINATION: US ABDOMEN COMPLETE CLINICAL INFORMATION: Worsening anemia. Question splenomegaly. COMPARISON: Ultrasound abdomen complete 04/24/2021. TECHNIQUE: Real-time imaging of the abdominal viscera. FINDINGS: PANCREAS: Normal. ABDOMINAL AORTA: The proximal, mid, and distal segments are normal in caliber. INFERIOR VENA CAVA: Visualized portions are normal. LIVER: Normal. The liver is normal in size. The liver contour is normal. Parenchymal echogenicity is normal. No focal hepatic lesion. There is no intrahepatic biliary duct dilatation seen. GALLBLADDER: Surgically absent. COMMON BILE DUCT: Normal in caliber measuring 0.3 cm in diameter. RIGHT KIDNEY: At the interpolar aspect, a 1.7 cm anechoic, simple cyst is seen. No hydronephrosis or renal calculi. The kidney measures 9.2 cm in maximum dimension. LEFT KIDNEY: Normal. No hydronephrosis. No renal calculi or focal parenchymal lesions. The kidney measures 8.1 cm in maximum dimension. SPLEEN: Normal. The spleen measures 9.7 cm in maximum dimension. FREE FLUID: None. US/US abdomen complete IMPRESSION: A 1.7 cm benign, anechoic, simple right renal cysts seen. This requires no imaging follow-up. The examination is otherwise unremarkable.
== END 2022-02-21 09:10 | disposition home or self-care (01) ==
LOC: HO.HMGCX 09:09
PROVIDERS: Visit Provider Internal Medicine
DX: C91.10 Chronic lymphocytic leukemia of B-cell type not having achieved remission (principal)
CPT/HCPCS: 76700

== ENCOUNTER → 2022-04-04 14:59 | Outpatient (REF) | payer MEDICARE, SELFPAY ==
--- NOTE | 2022-04-04 15:03 | CA_ITS ---
Transthoracic Echocardiogram Patient (Last, First, Middle): Luiza Gaitan J Gender: Female Date of : 1945 Age: 77 Procedure Date: 04/04/2022 Procedure Type: Transthoracic Echocardiogram Location: OP Height: 157.48 cm Weight: 89.81 kg BSA: 1.90 m2 Heart Rate: bpm BP: 130 / 78 mmHg Welfare Service Aide: Referring MD: Johan Husain DO Symptoms: AORTIC VALVE STENOSIS Study Quality: Fair ECG Rhythm: Sinus Conclusions: - Normal left ventricular size and systolic function. There is moderately increased left ventricular wall thickness. The visually estimated ejection fraction is between 65-70%. - Normal right ventricular cavity size and systolic function. - The left atrium is moderately dilated. There is lipomatous hypertrophy of the interatrial septum. - There is moderate aortic valve stenosis. The peak aortic velocity is 3.15 m/s. The mean gradient is 21 mmHg. - There is mild dilatation of the ascending aorta. Findings Left Ventricle Normal left ventricular size and systolic function. There is moderately increased left ventricular wall thickness. The visually estimated ejection fraction is between 65-70%. There is no evidence of regional wall motion abnormalities. Diastolic function is indeterminate on the basis of available data. Spectral Doppler is indicative of an impaired relaxation filling pattern. E/E prime ratio is <8, consistent with normal filling pressures. Right Ventricle Normal right ventricular cavity size and systolic function. Atria The left atrium is moderately dilated. There is lipomatous hypertrophy of the interatrial septum. Aortic Valve There is a normal trileaflet aortic valve. There is mild calcification of the aortic valve. There is mild thickening of the aortic valve. There is moderate aortic valve stenosis. The peak aortic velocity is 3.15 m/s. The mean gradient is 21 mmHg. There is no aortic valve regurgitation. Mitral Valve The mitral valve appears normal. There is no mitral valve regurgitation. There is no mitral valve stenosis. Pulmonic Valve Normal pulmonic valve structure and function. There is trace pulmonic valve regurgitation. Tricuspid Valve Normal tricuspid valve structure and function. There is trace tricuspid valve regurgitation. Normal right atrial pressure. There is no evidence of pulmonary hypertension. Great Vessels There is mild dilatation of the ascending aorta. The visualized portions of the pulmonary artery and branches are normal. Venous The inferior vena cava is normal in size and collapses greater than 50% with inspiration. Pericardium/Pleural There is no evidence of pericardial effusion. Prior Study Comparison Changes noted compared to prior study dated: 02/22/2021. Moderate present. Measurements 2D Linear Measurements IVSd: 1.27 0.6-0.9/0.6-1.0 cm LVIDd: 4.35 3.9-5.3/4.2-5.9 cm LVIDd Index: 2.29 2.4-3.2/2.2-3.1 cm/m2 LVIDs: 2.52 2.0-3.6 cm LVPWd: 1.31 0.7-1.1 cm Ao Root: 3.10 2.1-3.5 cm LA Diam: 3.90 2.7-3.8/3.0-4.0 cm LAIDs Index: 2.05 1.5-2.3 cm/m2 LV Mass: 260.52 67-162/88-224 g LV Mass Index: 137.12 43-95/49-115 g/m2 LVOT Diam: 2.00 3.0+(-)1.3 cm Mitral Valve MV Pk E: 0.53 MV PK A: 0.76 MV Decel Time: 295.00 E/A: 0.70 E'Lateral: 6.42 E'Medial: 6.20 E/E' Med: 8.50 E/E' Lat: 8.20 PHT: 86.00 MVA PHT: 2.56 Decel Gallia: 1.79 Aortic Valve AoV Pk Reinier: 3.15 AoV Mn Reinier: 2.05 AoV VTI: 0.74 AoV Pk Grad: 40.00 Aov Mn Grad: 21.00 ADA Cont.VTI: 1.16 LVOT LVOT Pk Reinier: 1.04 LVOT Mn Reinier: 0.67 LVOT VTI: 0.27 LVOT Pk Grad: 4.00 LVOT Mn Grad: 2.00 LVOT Diam: 2.00 LVOT Area: 3.14 Diastolic Function MV Pk E: 0.53 MV Pk A: 0.76 E/A: 0.70 E'Medial: 6.20 E/E' Med: 8.50 E' Laterial: 6.42 E/E' Lat: 8.20 Right Ventricle TAPSE (mm): 24.00 TVS' Reinier: 11.00 Tricuspid Valve TR Pk Reinier: 2.13 TR Pk Grad: 18.00 RA Press: 3.00 RVSP: 21.00 Great Vessels Aorta Ao Root-2D: 3.10 2.0-3.7 cm Ao Asc: 3.40 2.1-3.4 cm Pulmonary Valve PV Pk Reinier: 1.10 Peak PV Grad: 5.00 Updated in Other Vendor System with Status of Final Castillo Rocha MD electronically signed on 04/06/2022 9:16:58 PM with status of Final
== END ==
LOC: HO.CARD 14:59
PROVIDERS: PCP Internal Medicine; Visit Provider Internal Medicine
DX: I35.0 Nonrheumatic aortic (valve) stenosis (principal)
CPT/HCPCS: 93306

== ENCOUNTER 2022-05-30 12:31 | Emergency (ER) | payer MEDICARE, SELFPAY ==
--- NOTE | ~2022-05-30 | CT_ITS ---
EXAMINATION: CT ANGIOGRAM NECK WITH CONTRAST CT ANGIOGRAM BRAIN WITH CONTRAST CLINICAL INFORMATION: Dizziness. COMPARISON: None. TECHNIQUE: An initial noncontrast head CT was performed. Test bolus sequences followed by intravenous administration 70 mL of Omnipaque 350. Helical imaging was performed in the axial plane from the thoracic inlet to the skull vertex. Delayed postcontrast imaging of the head was also performed. The data was processed at the cardiac cath lab technologist workstation for generation of MIP sequences. Angled MIPs and volume rendered reformatted images were also generated at an offline 3D workstation. Stenoses are assessed in accordance with NASCET criteria unless otherwise indicated. This CT examination was performed using dose optimization techniques as appropriate, variously including the following: *Automated exposure control *Adjustment of mA and/or kV according to patient size (this includes techniques or standardized protocols for targeted exams where dose is matched to indication/reason for exam; i.e. extremities or head) *Use of iterative reconstruction technique DLP: 2268 mGy-cm FINDINGS: Head CT: There is no intracranial hemorrhage, large acute infarction, or mass lesion. The ventricles are normal in size and configuration without evidence of hydrocephalus. There is no abnormal intracranial enhancement. The dural venous sinuses are normally opacified. There is a small amount of fluid within the bilateral inferior mastoids. Neck CTA: Atheromatous changes are seen involving the aortic arch. The great vessel origins are patent. There is motion artifact in the region of the carotid bifurcations limiting evaluation. Atheromatous changes at the right carotid bifurcation results in approximately 50% stenosis. There is no significant stenosis of the left carotid bifurcation. The cervical segments of both ICAs are patent. Both vertebral arteries are patent with the right side being mildly dominant. Head CTA: No large vessel occlusion is seen. The intradural vertebral arteries and basilar artery are patent. Both sat instructor are patent. Intracranial ICAs, ACAs, and MCAs are patent. No aneurysm is seen. Non-vascular findings: No gross upper lung consolidation is seen. There is a 10 mm nodule within the right upper lobe seen on series 10 image . Previous this pulmonary nodule measured 8 mm on the 05/07/2021 exam. The cervical soft tissues are within normal limits. CT/CT angio head neck IMPRESSION: CT HEAD: No intracranial hemorrhage or large acute infarction. CTA NECK: Motion artifact limits evaluation. Approximately 50% stenosis of the right carotid bifurcation. No significant stenosis of the left carotid bifurcation. Vertebral arteries are patent. CTA HEAD: 1. No large vessel occlusion or significant stenosis within the intracranial circulation. Additional findings: A pulmonary nodule is noted in the right upper lobe measuring 10 mm, previously 8 mm. In the setting of known CLL, follow-up is recommended based on oncologic guidelines.
[2022-05-30 13:16] VITALS: BP 142/51; PULSE 71; RESP 20; TEMP 36.1; O2SAT 99; BMI 35.4
--- NOTE | 2022-05-30 13:16 | ED.GENADULT ---
HPI - General Adult General Chief complaint: General Medical Stated complaint: Loss of balance Time Seen by Provider: 05/30/22 13:38 Related Data Home Medications Medication Instructions Recorded Confirmed aspirin 81 mg tablet,delayed 81 mg PO DAILY 10/30/20 06/03/22 release cholestyramine-aspartame 4 gram 1 packet PO DAILY 10/30/20 06/03/22 oral powder for susp in a packet (Prevalite) multivitamin 1 tab PO DAILY 10/30/20 06/03/22 acetaminophen 325 mg capsule 325 mg PO QID PRN Pain 04/26/21 06/03/22 (Tylenol) furosemide 20 mg tablet 40 mg PO DAILY 06/03/22 06/03/22 lisinopril 10 mg tablet 10 mg PO DAILY 06/03/22 06/03/22 Previous Rx's Medication Instructions Recorded ferrous sulfate 325 mg (65 mg 325 mg PO DAILY #60 tabs 02/05/22 iron) tablet (iron) Allergies Allergy/AdvReac Type Severity Reaction Status Date / Time Sulfa (Sulfonamide Allergy Intermediate HIVES Verified 06/03/22 09:58 Antibiotics) [SULFA (SULFONAMIDE ANTIBIOTICS)] pollen extracts Allergy Hives Verified 06/03/22 09:58 PMFSH Past Medical History Medical History (Updated 06/03/22 @ 10:32 by Dante Koehler MD) Basal cell carcinoma (BCC) of face CAD (coronary artery disease) COVID-19 vaccine series completed Elevated cholesterol Glaucoma HTN (hypertension) Low back pain Neuropathy Obesity Osteoarthritis Osteopenia Spinal stenosis Venous insufficiency Surgical History History of bilateral YAG laser iridotomy History of lumpectomy of left breast History of surgery History of total right knee replacement (TKR) Hx of arthroscopy of left knee Hx of cholecystectomy S/p bilateral myringotomy with tube placement Family History Family History Father High blood pressure Mother High blood pressure Paternal Aunt Breast cancer Maternal Uncle Lung cancer Social History Social History Household Members: None Housing: Apartment Are you a primary health care coordinator to a significant other at home: No Do you presently have visiting nurse or other home services: No Alcohol intake: current Alcohol intake frequency: 0-2 drinks per day Patient Tobacco Use Status: Former Tobacco user Quit Date: 1978 Tobacco use type: Cigarette Cigarette Packs Per Day: 1 service: No Current occupational status: retired Physical Exam ED Vital Signs: BMI result Body Mass Index 35.4 Course Course Course Narrative: This is an RME: Additional HPI, ROS, PE not included below will be deferred to primary provider. Patient is a 77-year-old female who presents to the emergency department today, she contacted her primary care doctor's office and was advised to come to the emergency department with the following complaints. Reports this morning she lost her balance in the shower, attempted to grab the well, landed on her knee, then got back up. Denies head strike or loss of consciousness. Denies dizziness with this. Reports a similar event 2 weeks ago. Both times very sudden, seem to be worse with quick position changing. Reports diagnosis of vertigo as a child, but no symptoms for adult life. Denies current dizziness, lightheadedness, and chest pain, shortness of breath, difficulty breathing, recent ill symptoms Plan: labs, EKG, orthostatic vital signs Medications Administered Discontinued Medications Generic Name Dose Route Start Last Admin Trade Name Freq PRN Reason Stop Dose Admin Iohexol 100 ml 05/30/22 14:52 05/30/22 14:53 Iohexol 350 Mg/Ml 100 Ml Infus..Btl IV 05/30/22 14:53 70 ml ONCE ONE Administration Medical Decision Making Lab Data 05/30/22 13:49 05/30/22 13:49 Labs: Lab Results 05/30/22 05/30/22 05/30/22 Range/Units 13:49 13:49 13:49 WBC 6.8 (4.8-10.8) X10*3/uL RBC 3.14 L (4.20-5.50) X10*6/uL Hgb 9.8 L (12.0-16.0) g/dl Hct 29.8 L (37.0-47.0) % MCV 94.9 (80.0-98.0) fL MCH 31.2 (27.0-33.0) pg MCHC 32.9 (31.0-35.0) g/dl RDW 14.0 (11.0-16.0) % Plt Count 121 L (160-400) X10*3/uL MPV 11.4 (9.4-12.3) fL Immature Gran % (Auto) 0.6 H (0.0-0.4) % Neut % (Auto) 23.1 L (45-73) % Lymph % (Auto) 61.7 H (20-40) % [place] % (Auto) 14.4 H (2-11) % Eos % (Auto) 0.1 (0-4) % Baso % (Auto) 0.1 (0-2) % Lymph # (Auto) 4.2 (1.2-4.9) X10*3/uL [place] # (Auto) 1.0 (0.1-1.2) X10*3/uL Eos # (Auto) 0.0 (0.0-0.4) X10*3/uL Baso # (Auto) 0.0 (0.0-0.2) X10*3/uL Abs Immat Gran (auto) 0.04 H (0.00-0.03) X10*3/uL Absolute Neuts (auto) 1.6 L (2.0-8.3) x10*3/uL Absolute Nucleated RBC 0.000 (0.0-0.012) X10*3/uL Nucleated RBC % (auto) 0.0 (0.0-0.2) /100WBC Smear Tech's Comments VERIFIED Sodium 137 (135-145) mmol/L Potassium 4.5 (3.3-5.1) mmol/L Chloride 102 (96-108) mmol/L Carbon Dioxide 21 L (22-29) mmol/L Anion Gap 19 (12-20) BUN 35 H (9-16) mg/dL Creatinine 1.30 (0.5-1.4) mg/dL Estim Creat Clear Calc 38.1 Estimated GFR 40 Random Glucose 91 (60-115) mg/dL Calcium 8.9 (8.4-10.2) mg/dL Magnesium 2.4 (1.6-2.6) mg/dL Total Bilirubin 0.4 (0.0-1.0) mg/dL AST 30 (5-31) U/L ALT 22 (0-31) U/L Alkaline Phosphatase 99 (39-117) U/L Troponin I High Sens 5.6 (<3.5-17.0) ng/L Total Protein 7.2 (6.5-8.0) g/dL Albumin 4.4 (3.5-5.0) g/dL Lipase 74 (8-78) U/L Discharge Plan Discharge Clinical Impression: Dizziness Patient Disposition: Home, Self-Care Instructions: Dizziness (ED) Additional Instructions: Follow-up with your primary care physician you a pulmonary nodule that will need the at chest x-ray follow-up, gave you a copy of the radiology report bring him to your primary care physician Prescriptions: No Action multivitamin Tablet 1 tab PO DAILY aspirin [Aspir-81] 81 mg Tablet,Delayed Release (Dr/Ec) 81 mg PO DAILY cholestyramine-aspartame [Prevalite] 4 gram powder in packet 1 packet PO DAILY furosemide 20 mg tablet 40 mg PO DAILY lisinopril 10 mg tablet 10 mg PO DAILY acetaminophen [Tylenol] 325 mg Capsule 325 mg PO QID PRN (Reason: Pain) ferrous sulfate [iron] 325 mg (65 mg iron) Tablet 325 mg PO DAILY Qty: 60 3RF Referrals: Johan Husain DO [Primary Care Provider] - 3 days Interventions: ED Discharge Assessment Last Done: 05/30/22 16:32 Discharge Date/Time: 05/30/22 16:33
--- NOTE | 2022-05-30 13:19 | ECG_ITS ---
Test Reason : Loss of balance Blood Pressure : / mmHG Vent. Rate : 064 BPM Atrial Rate : 064 BPM P-R Int : 180 ms QRS Dur : 102 ms QT Int : 426 ms P-R-T Axes : 037 054 034 degrees QTc Int : 439 ms Normal sinus rhythm Normal ECG No previous ECGs available Referred By: Liza Sethi Electronically Signed By:CARLOS TOURE
[2022-05-30 13:37] VITALS: BP 138/58; PULSE 69
[2022-05-30 13:38] VITALS: BP 138/58; BP 147/63; PULSE 68; PULSE 73
--- NOTE | 2022-05-30 13:48 | ED.GENADULT ---
HPI - General Adult General Chief complaint: General Medical Stated complaint: Loss of balance Time Seen by Provider: 05/30/22 13:38 Source: patient Mode of arrival: ambulatory Limitations: no limitations History of Present Illness HPI narrative: This is a 77 years old female presented to the ED after an episode of dizziness while she was in the bathroom she describes the dizziness as imbalance, no syncope, he feels back to the baseline at this time. She has history of hypertension. Onset (ago): hour(s) (1) Radiation: non-radiation Severity: mild Relieving factors: none Related Data Home Medications Medication Instructions Recorded Confirmed aspirin 81 mg tablet,delayed 81 mg PO DAILY 10/30/20 04/28/22 release cholestyramine-aspartame 4 gram 1 packet PO DAILY 10/30/20 04/28/22 oral powder for susp in a packet (Prevalite) furosemide 20 mg tablet 2 tab PO DAILY 10/30/20 04/28/22 lisinopril 10 mg tablet 1 tab PO DAILY 10/30/20 04/28/22 multivitamin 1 tab PO DAILY 10/30/20 04/28/22 acetaminophen 325 mg capsule 325 mg PO QID PRN Pain 04/26/21 04/28/22 (Tylenol) Previous Rx's Medication Instructions Recorded ferrous sulfate 325 mg (65 mg 325 mg PO DAILY #60 tabs 02/05/22 iron) tablet (iron) Allergies Allergy/AdvReac Type Severity Reaction Status Date / Time Sulfa (Sulfonamide Allergy Intermediate HIVES Verified 02/04/22 10:11 Antibiotics) [SULFA (SULFONAMIDE ANTIBIOTICS)] pollen extracts Allergy Hives Verified 02/04/22 10:11 Review of Systems Constitutional: Constitutional: Reports no additional constitutional complaints ENT: Reports system reviewed and no additional complaints, except as documented Cardiovascular: Cardiovascular: Reports no additional cardiovascular complaints Respiratory: Respiratory: Reports no additional respiratory complaints [facility] Past Medical History Medical History Basal cell carcinoma (BCC) of face CAD (coronary artery disease) COVID-19 vaccine series completed Elevated cholesterol Glaucoma HTN (hypertension) Low back pain Neuropathy Obesity Osteoarthritis Osteopenia Spinal stenosis Venous insufficiency Surgical History History of bilateral YAG laser iridotomy History of lumpectomy of left breast History of surgery History of total right knee replacement (TKR) Hx of arthroscopy of left knee Hx of cholecystectomy S/p bilateral myringotomy with tube placement Family History Family History Father High blood pressure Mother High blood pressure Paternal Aunt Breast cancer Maternal Uncle Lung cancer Social History Social History Household Members: None Housing: Apartment Are you a primary transitional care nurse to a significant other at home: No Do you presently have visiting nurse or other home services: No Alcohol intake: current Alcohol intake frequency: 0-2 drinks per day Patient Tobacco Use Status: Former Tobacco user Quit Date: 1978 Tobacco use type: Cigarette Cigarette Packs Per Day: 1 Advance Directives: No service: No Current occupational status: retired Physical Exam ED Vital Signs: Vital Signs - 24 hr 05/30/22 13:16 05/30/22 13:37 05/30/22 13:38 Temperature 97.0 F Pulse Rate 71 69 68 Respiratory Rate 20 Blood Pressure 142/51 H 138/58 L 147/63 H Pulse Oximetry 99 Oxygen Delivery Method Room Air 05/30/22 13:38 05/30/22 15:12 Temperature Pulse Rate 73 71 Respiratory Rate 18 Blood Pressure 138/58 L 139/69 Pulse Oximetry 99 Oxygen Delivery Method Room Air BMI result Body Mass Index 35.4 Const General: cooperative Nutritional Appearance: well nourished Orientation/consciousness: patient oriented x3 Limitations: no limitations HENMT Head: Yes normal to inspection General nose exam: Normal external nose present Face and sinus: Yes normal facial exam Mouth: Normal oral and palatal mucosa present Throat: Yes posterior oropharynx normal Neck Neck: Yes normal visual inspection and Yes no lymphadenopathy Chest Chest palpation & inspection: normal inspection of the chest Resp Effort & Inspection: normal respiratory effort and able to speak in complete sentences Auscultation: clear to auscultation bilaterally Cardio Jugular venous distension: no JVD Rate: regular rate Rhythm: regular rhythm GI Inspection: Yes normal to inspection Palpation (GI): Soft to palpation, not firm, nontender and no guarding Neuro General: patient oriented x3, gait normal, Normal light touch and pain sensation, no focal motor deficits and CN's II-XI intact bilaterally Course Reevaluation(s) Reevaluation #1: I re-examined the patient a 16:09 a she is unchanged she is neurologically intact, a CT angiography of the head and neck showed no critical stenosis at this point I think the patient can be discharged home symptoms are resolved I do not think we need to do an MRI of the brain today, will discharge the patient home she will follow up with the primary care physician she will return if worse, this was discussed with the patient she is very comfortable with this plan of care Time: 16:10 Reevaluation #2: Patient was told also about the pulmonary nodule I gave her copy of radiology report, she will follow up with the primary care physician. Medications Administered Discontinued Medications Generic Name Dose Route Start Last Admin Trade Name Freq PRN Reason Stop Dose Admin Iohexol 100 ml 05/30/22 14:52 05/30/22 14:53 Iohexol 350 Mg/Ml 100 Ml Infus..Btl IV 05/30/22 14:53 70 ml ONCE ONE Administration Medical Decision Making Medical Decision Making [facility] Narrative: Patient presented with dizziness with get labs EKG ST-T Differential Diagnosis Differential Diagnoses: The differential diagnosis associated with the presentation includes Differential diagnoses TIA, arrhythmia Admission/Observation Consideration of admission/observation: Escalation of care including admission/observation considered Lab Data [facility] Lab Attestation statement: I reviewed the patient's lab results. 05/30/22 13:49 05/30/22 13:49 Labs: Lab Results 05/30/22 05/30/22 05/30/22 Range/Units 13:49 13:49 13:49 WBC 6.8 (4.8-10.8) X10*3/uL RBC 3.14 L (4.20-5.50) X10*6/uL Hgb 9.8 L (12.0-16.0) g/dl Hct 29.8 L (37.0-47.0) % MCV 94.9 (80.0-98.0) fL MCH 31.2 (27.0-33.0) pg MCHC 32.9 (31.0-35.0) g/dl RDW 14.0 (11.0-16.0) % Plt Count 121 L (160-400) X10*3/uL MPV 11.4 (9.4-12.3) fL Immature Gran % (Auto) 0.6 H (0.0-0.4) % Neut % (Auto) 23.1 L (45-73) % Lymph % (Auto) 61.7 H (20-40) % [place] % (Auto) 14.4 H (2-11) % Eos % (Auto) 0.1 (0-4) % Baso % (Auto) 0.1 (0-2) % Lymph # (Auto) 4.2 (1.2-4.9) X10*3/uL [place] # (Auto) 1.0 (0.1-1.2) X10*3/uL Eos # (Auto) 0.0 (0.0-0.4) X10*3/uL Baso # (Auto) 0.0 (0.0-0.2) X10*3/uL Abs Immat Gran (auto) 0.04 H (0.00-0.03) X10*3/uL Absolute Neuts (auto) 1.6 L (2.0-8.3) x10*3/uL Absolute Nucleated RBC 0.000 (0.0-0.012) X10*3/uL Nucleated RBC % (auto) 0.0 (0.0-0.2) /100WBC Smear Tech's Comments VERIFIED Sodium 137 (135-145) mmol/L Potassium 4.5 (3.3-5.1) mmol/L Chloride 102 (96-108) mmol/L Carbon Dioxide 21 L (22-29) mmol/L Anion Gap 19 (12-20) BUN 35 H (9-16) mg/dL Creatinine 1.30 (0.5-1.4) mg/dL Estim Creat Clear Calc 38.1 Estimated GFR 40 Random Glucose 91 (60-115) mg/dL Calcium 8.9 (8.4-10.2) mg/dL Magnesium 2.4 (1.6-2.6) mg/dL Total Bilirubin 0.4 (0.0-1.0) mg/dL AST 30 (5-31) U/L ALT 22 (0-31) U/L Alkaline Phosphatase 99 (39-117) U/L Troponin I High Sens 5.6 (<3.5-17.0) ng/L Total Protein 7.2 (6.5-8.0) g/dL Albumin 4.4 (3.5-5.0) g/dL Lipase 74 (8-78) U/L Independent Interpretation I performed an independent interpretation of an: EKG (Normal sinus rhythm a rate [address]-T changes) Radiology Impression Radiologist Impression: tent. No aneurysm is seen. Non-vascular findings: No gross upper lung consolidation is seen. There is a 10 mm nodule within the right upper lobe seen on series 10 image . Previous this pulmonary nodule measured 8 mm on the 05/07/2021 exam. The cervical soft tissues are within normal limits. CT/CT angio head neck IMPRESSION: CT HEAD: No intracranial hemorrhage or large acute infarction. ? CTA NECK: Motion artifact limits evaluation. Approximately 50% stenosis of the right carotid bifurcation. No significant stenosis of the left carotid bifurcation. Vertebral arteries are patent. ? CTA HEAD: 1.? No large vessel occlusion or significant stenosis within the intracranial circulation. ? Additional findings: A pulmonary nodule is noted in the right upper lobe measuring 10 mm, previously 8 mm. In the setting of known CLL, follow-up is recommended based on oncologic guidelines. ? Dictated By: SHAUN DIAZ MD Signed By: <Electronically signed by SHAUN DIAZ MD in OV> 05/30/22 [id number] Discharge Plan Discharge Clinical Impression: Dizziness Patient Disposition: Home, Self-Care Instructions: Dizziness (ED) Additional Instructions: Follow-up with your primary care physician you a pulmonary nodule that will need the at chest x-ray follow-up, gave you a copy of the radiology report bring him to your primary care physician Prescriptions: No Action multivitamin Tablet 1 tab PO DAILY aspirin [Aspir-81] 81 mg Tablet,Delayed Release (Dr/Ec) 81 mg PO DAILY lisinopril 10 mg tablet 1 tab PO DAILY furosemide 20 mg tablet 2 tab PO DAILY cholestyramine-aspartame [Prevalite] 4 gram powder in packet 1 packet PO DAILY acetaminophen [Tylenol] 325 mg Capsule 325 mg PO QID PRN (Reason: Pain) ferrous sulfate [iron] 325 mg (65 mg iron) Tablet 325 mg PO DAILY Qty: 60 3RF Referrals: Johan Husain DO [Primary Care Provider] - 3 days Interventions: ED Discharge Assessment Last Done: 05/30/22 16:32 Discharge Date/Time: 05/30/22 16:33
[2022-05-30 13:58] LABS: Basophils Percent Auto 0.1 % (0-2); Eosinophils Percent Auto 0.1 % (0-4); Hematocrit 29.8 % (37.0-47.0); Hemoglobin 9.8 g/dl (12.0-16.0); Imm Gran Abs Auto 0.04 X10*3/uL (0.00-0.03); Imm Gran Pct Auto 0.6 % (0.0-0.4); Lymphocytes Absolute Auto 4.2 X10*3/uL (1.2-4.9); Lymphocytes Percent Auto 61.7 % (20-40); MANUAL DIFF FLAG SCAN; Mean Corpuscular HGB Conc 32.9 g/dl (31.0-35.0); Mean Corpuscular Hemoglobin 31.2 pg (27.0-33.0); Mean Corpuscular Volume 94.9 fL (80.0-98.0); Mean Platelet Volume 11.4 fL (9.4-12.3); Monocytes Percent Auto 14.4 % (2-11); Neutrophils Absolute Auto 1.6 x10*3/uL (2.0-8.3); Neutrophils Percent Auto 23.1 % (45-73); Platelet Count 121 X10*3/uL (160-400); Red Blood Count 3.14 X10*6/uL (4.20-5.50); SCAN SMEAR FLAG 1; White Blood Count 6.8 X10*3/uL (4.8-10.8)
[2022-05-30 14:12] LABS: Alanine Aminotransferase 22 U/L (0-31); Albumin Level 4.4 g/dL (3.5-5.0); Alkaline Phosphatase 99 U/L (39-117); Anion Gap 19 (12-20); Aspartate Amino Transferase 30 U/L (5-31); Bilirubin Total 0.4 mg/dL (0.0-1.0); Blood Urea Nitrogen 35 mg/dL (9-16); Calcium 8.9 mg/dL (8.4-10.2); Carbon Dioxide 21 mmol/L (22-29); Chloride 102 mmol/L (96-108); Creatinine Clr Calc Pharmacy 38.1; Estimated Glomerular Filt Rate 40; Glucose Random 91 mg/dL (60-115); Lipase 74 U/L (8-78); Magnesium 2.4 mg/dL (1.6-2.6); Potassium 4.5 mmol/L (3.3-5.1); Sodium 137 mmol/L (135-145); Total Protein 7.2 g/dL (6.5-8.0)
[2022-05-30 14:19] LABS: Troponin-I High Sensitivity 5.6 ng/L (<3.5-17.0)
[2022-05-30 14:27] LABS: SLIDE REVIEW VERIFIED
[2022-05-30] MEDS: iohexoL 350 MG/ML 100 ML INFUS..BTL IV (14:53)
[2022-05-30 15:12] VITALS: BP 139/69; PULSE 71; RESP 18; O2SAT 99
== END 2022-05-30 16:33 | disposition home or self-care (01) ==
PROVIDERS: Nurse Practitioner Family; Emergency Provider Emergency Medicine; PCP Internal Medicine
DX: R42 Dizziness and giddiness (principal); I10 Essential (primary) hypertension; M54.2 Cervicalgia; Z87.891 Personal history of nicotine dependence; Z79.899 Other long term (current) drug therapy
CPT/HCPCS: 36415; 70496; 70498; 80053; 83690; 83735; 84484; 85025; 93005; 99284; Q9967

== ENCOUNTER → 2022-06-03 09:53 | Outpatient (BNVA) | payer MEDICARE, SELFPAY | PROVIDERS: PCP Internal Medicine; Visit Provider Internal Medicine | DX: I35.0 Nonrheumatic aortic (valve) stenosis (principal); I10 Essential (primary) hypertension | CPT/HCPCS: 99202 ==

== ENCOUNTER → 2022-11-28 11:00 | Outpatient (REF) | payer MEDICARE, SELFPAY | LOC: HO.CARD 11:00 | PROVIDERS: PCP Internal Medicine; Visit Provider Internal Medicine | DX: I35.0 Nonrheumatic aortic (valve) stenosis (principal) | CPT/HCPCS: 93306 ==

== ENCOUNTER 2022-12-10 11:03 | Outpatient (REF) | payer MEDICARE, SELFPAY ==
--- NOTE | ~2022-12-10 | XR_ITS ---
EXAMINATION: XR FOOT, RIGHT CLINICAL INFORMATION: Right foot pain. COMPARISON: 07/15/2019 TECHNIQUE: AP, lateral, and oblique views of the right foot. FINDINGS: Mild hallux valgus. There is progressive severe joint space narrowing at the first MTP joint with flattening of the first metatarsal head with marginal osteophytes. There is associated dorsal soft tissue swelling. Old healed fracture of the fifth metatarsal. No acute displaced fracture. Large plantar calcaneal spur. XR/XR foot RT min 3V IMPRESSION: Progressive severe osteoarthritis of the first MTP joint.
[2022-12-10 12:10] LABS: Basophils Percent Auto 0.1 % (0-2); Eosinophils Percent Auto 0.1 % (0-4); Hematocrit 28.6 % (37.0-47.0); Hemoglobin 9.5 g/dl (12.0-16.0); Imm Gran Abs Auto 0.16 X10*3/uL (0.00-0.03); Imm Gran Pct Auto 1.8 % (0.0-0.4); Lymphocytes Absolute Auto 3.9 X10*3/uL (1.2-4.9); Lymphocytes Percent Auto 44.4 % (20-40); MANUAL DIFF FLAG SCAN; Mean Corpuscular HGB Conc 33.2 g/dl (31.0-35.0); Mean Corpuscular Hemoglobin 31.4 pg (27.0-33.0); Mean Corpuscular Volume 94.4 fL (80.0-98.0); Mean Platelet Volume 13.1 fL (9.4-12.3); Monocytes Absolute Auto 1.5 X10*3/uL (0.1-1.2); Monocytes Percent Auto 17.2 % (2-11); Neutrophils Absolute Auto 3.2 x10*3/uL (2.0-8.3); Neutrophils Percent Auto 36.4 % (45-73); Red Blood Count 3.03 X10*6/uL (4.20-5.50); Red Cell Distribution Width 14.5 % (11.0-16.0); SCAN SMEAR FLAG 1; White Blood Count 8.9 X10*3/uL (4.8-10.8)
[2022-12-10 12:14] LABS: Platelet Count 94 X10*3/uL (160-400)
[2022-12-10 12:38] LABS: SLIDE REVIEW VERIFIED
[2022-12-10 12:48] LABS: Erythrocyte Sedimentation Rate 100 MM/HR (0-20)
[2022-12-10 13:34] LABS: Folate 16.1 ng/mL (> or = 4.0); Vitamin B12 949 pg/mL (200-900)
[2022-12-11 02:21] LABS: Anion Gap 17 (12-20); Blood Urea Nitrogen 21 mg/dL (9-16); C Reactive Protein 7.93 mg/dL (< or = 0.50); Calcium 9.3 mg/dL (8.4-10.2); Carbon Dioxide 27 mmol/L (22-29); Chloride 95 mmol/L (96-108); Estimated Glomerular Filt Rate 59; Glucose Random 95 mg/dL (60-115); Potassium 3.4 mmol/L (3.3-5.1); Sodium 136 mmol/L (135-145); Uric Acid 13.6 mg/dL (2.4-5.7)
== END 2022-12-10 11:04 | disposition home or self-care (01) ==
LOC: HO.XRAY 11:03
PROVIDERS: PCP Internal Medicine; Visit Provider Internal Medicine
DX: I87.2 Venous insufficiency (chronic) (peripheral) (principal); I10 Essential (primary) hypertension; C91.10 Chronic lymphocytic leukemia of B-cell type not having achieved remission; E53.8 Deficiency of other specified B group vitamins; E66.09 Other obesity due to excess calories; D64.9 Anemia, unspecified
CPT/HCPCS: 36415; 73630; 80048; 82607; 82746; 84550; 85025; 85652; 86140

== ENCOUNTER 2022-12-18 08:46 | Outpatient (AMB) | payer MEDICARE, SELFPAY ==
--- NOTE | 2022-12-18 08:47 | A.OFFVIS_ITS ---
Intake Vital Signs 12/18/22 08:48 Height 5 ft 3 in Weight 193 lb BMI 34.2 BP 120/70 Pulse 65 Pulse Source Pulse Oximeter Intake Visit Reasons: 6 mth fu after echo Intake Note: 6 month f/u after Echo Java Web Engineer Required: No Allergies Sulfa (Sulfonamide Antibiotics) [SULFA (SULFONAMIDE ANTIBIOTICS)] Allergy (Intermediate, Verified 12/18/22 08:53) HIVES pollen extracts Allergy (Verified 12/18/22 08:53) Hives Medication List - Last Reconciled 12/18/22 by Ashleigh Lara NP-C acetaminophen (Tylenol) 325 mg PO QID PRN aspirin 81 mg PO DAILY cholestyramine-aspartame 4 gram (Prevalite) 1 packet PO DAILY ferrous sulfate (iron) 325 mg PO DAILY furosemide 40 mg PO DAILY multivitamin 1 tab PO DAILY HPI 6 mth fu after echo HPI Details Luiza Diaz is a 77-year-old female with past medical history of hypertension, coronary artery disease, moderate aortic stenosis who recently had an echocardiogram and now presents for follow-up. Today she reports that she does have some shortness of breath with activity but it has not significantly changed in the last 6 months. She denies any chest discomfort at rest or with activity. She does not have lightheadedness, presyncope, syncope, falls. She has been experiencing some swelling and gout in her right foot. She is currently in a wheelchair at this visit. Her activity has been somewhat limited at home because of this. No palpitations, PND, orthopnea or edema. Takes all her meds as directed. [facility] Medical History Basal cell carcinoma (BCC) of face CAD (coronary artery disease) COVID-19 vaccine series completed Elevated cholesterol Glaucoma HTN (hypertension) Low back pain Neuropathy Obesity Osteoarthritis Osteopenia Spinal stenosis Venous insufficiency Surgical History History of bilateral YAG laser iridotomy History of lumpectomy of left breast History of surgery History of total right knee replacement (TKR) Hx of arthroscopy of left knee Hx of cholecystectomy S/p bilateral myringotomy with tube placement Family History Father High blood pressure Mother High blood pressure Paternal Aunt Breast cancer Maternal Uncle Lung cancer Social History Household Members: None Housing: Apartment Are you a primary lawn care technician to a significant other at home: No Do you presently have visiting nurse or other home services: No Alcohol intake: current Alcohol intake frequency: 0-2 drinks per day Patient Tobacco Use Status: Former Tobacco user Quit Date: 1978 Tobacco use type: Cigarette Cigarette Packs Per Day: 1 service: No Current occupational status: retired Review of Systems Const All systems reviewed & are unremarkable except as noted in HPI and below ENT Reports dizziness Card Denies chest pain, Denies chest pain at rest, Denies chest pain with activity, Denies rapid heart rate, Denies pedal edema, Denies edema, Denies leg edema, Denies lightheadedness, Denies palpitations, Denies dyspnea, Reports dyspnea on exertion and Denies orthopnea Resp Denies cough, Denies dyspnea and Reports dyspnea on exertion GI Denies hematochezia and Denies change in stool character Musc Denies abnormal gait, Reports limited range of motion, Reports muscle cramps, Denies muscle weakness, Denies numbness, Denies radiating pain into limb, Denies stiffness and Denies tingling Neuro Denies abnormal gait, Reports dizziness, Denies numbness and Denies tingling Endo Denies palpitations Physical Exam Vital Signs: Last Vital Signs Pulse 65 12/18/22 08:48 BP 120/70 12/18/22 08:48 BMI result Body Mass Index 34.2 Const General: cooperative, comfortable and no acute distress Orientation/consciousness: patient oriented x3 Neck Neck: Yes normal visual inspection and Yes no JVD Resp Effort & Inspection: normal respiratory effort Auscultation: clear to auscultation bilaterally, no rales, no rhonchi and no wheezes Cardio Jugular venous distension: no JVD Rate: regular rate Rhythm: regular rhythm Heart sounds: S2 normal heart sound present, no gallops, Murmur heart sound present (2/6 systolic murmur right sternal border) and no rubs Neuro General: patient oriented x3 Extrem General: Yes normal to inspection Psych Appearance: grossly normal Mental Status: mental status grossly normal Speech and movement: Normal speech and movement present Assessment & Plan Assessment & Plan (1) Non-rheumatic aortic stenosis: Code(s): I35.0 - Nonrheumatic aortic (valve) stenosis Plan: History of aortic stenosis. Echocardiogram 04/04/2022 shows moderate with mean gradient 21 mmHg, aortic valve area 1.1 centimeter squared. Repeat echocardiogram done 11/28/2021 showing moderate aortic stenosis, mean gradient 21 mm Hg, aortic valve area 0.94 centimeter sq. She does report some shortness of breath with activity however no significant change in the last 6 months. Her activity is limited currently by gout in her right foot. She currently has stairs in her apartment but is moving in a few weeks to a single floor apartment. Spent time reviewing the signs and symptoms of severe aortic stenosis. Briefly discussed future TAVR and she states understanding. No recent lipid profile for review. Recommend good cholesterol control which is currently followed by her PCP. With her shortness of breath symptom will plan for repeat echocardiogram in 6 months, sooner if needed. Cardiology follow-up when results are available. (2) HTN (hypertension): Code(s): I10 - Essential (primary) hypertension Plan: Well controlled at present time. No med changes made. (3) CAD (coronary artery disease): Code(s): I25.10 - Atherosclerotic heart disease of [place] coronary artery without angina pectoris Plan: CAD listed in medical history. No reports of anginal sounding symptoms. Jacob nue daily aspirin. Recommend lipid profile through PCP office if not done recently. Orders: Orders CA echo transthoracic complete 6 Months I35.0 - Nonrheumatic aortic (valve) stenosis Coding Level of Care Code Est Pt Level 4 (22252) Diagnoses Non-rheumatic aortic stenosis I35.0 HTN (hypertension) I10 CAD (coronary artery disease) I25.10 Time Spent (min) 22 Comment Chart review, documentation, interview, assess
[2022-12-18 08:48] VITALS: BP 120/70; PULSE 65; BMI 34.2
== END 2022-12-18 09:12 | disposition home or self-care (01) ==
PROVIDERS: PCP Internal Medicine; Visit Provider Nurse Practitioner Family
DX: I35.0 Nonrheumatic aortic (valve) stenosis (principal); I10 Essential (primary) hypertension; I25.10 Atherosclerotic heart disease of native coronary artery without angina pectoris
CPT/HCPCS: 99214

== ENCOUNTER → 2022-12-18 08:46 | Outpatient (BNVA) | payer MEDICARE, SELFPAY | PROVIDERS: PCP Internal Medicine; Visit Provider Nurse Practitioner Family | DX: I35.0 Nonrheumatic aortic (valve) stenosis (principal); I25.10 Atherosclerotic heart disease of native coronary artery without angina pectoris; I10 Essential (primary) hypertension | CPT/HCPCS: 99212 ==

== ENCOUNTER → 2023-10-06 11:41 | Day surgery (SDC) | payer MEDICARE, SELFPAY ==
--- NOTE | 2023-09-21 14:40 | MHC.HEMONC ---
Triage call-pt called per Dr Chu request regarding upcoming bone biopsy appointment scheduled for tomorrow 09/22/23. Office was called by pt's daughter who states they are cancelling bone biopsy for tomorrow. We do not have daughters contact information. Pt called with no answer-Message left for pt to call office today, son Rik also called with request to call office-message left
--- NOTE | ~2023-10-06 | CT_ITS ---
Bone marrow biopsy INDICATIONS: CLL with anemia After informed and written consent was obtained an official timeout was performed immediately prior to the procedure. I was personally responsible for the administration of moderate sedation services, all requirements were followed, an independent trained observer was utilized. PROCEDURE: Under CT guidance with the patient in a prone position scans of the upper pelvis were performed. The skin was prepped and draped in the usual fashion overlying the upper pelvis. 1% Xylocaine was used for local anesthetic. Under CT guidance an arrow 11 g bone biopsy needle was placed into the left initial wing. A bone marrow aspirate was performed. The needle was then advanced into the mid to anterior aspect of the initial wing and a core biopsy specimen was obtained. The needle was removed and manual pressure held for [address]/CT biopsy asp core bone marrow IMPRESSION: Successful bone marrow biopsy and aspirate as noted
[2023-10-06 11:59] VITALS: BMI 28.0
[2023-10-06 12:15] LABS: Baso%MD 0.1 %; Eos%MD 0.2 %; Hematocrit 29.2 % (37.0-47.0); Hemoglobin 9.7 g/dl (12.0-16.0); IG%MD 1.4 %; Lymph%MD 44.1 %; Mean Corpuscular HGB Conc 33.2 g/dl (31.0-35.0); Mean Corpuscular Hemoglobin 32.2 pg (27.0-33.0); Mean Platelet Volume 11.9 fL (9.4-12.3); Mono%MD 25.2 %; Platelet Count 191 X10*3/uL (160-400); Red Blood Count 3.01 X10*6/uL (4.20-5.50); Red Cell Distribution Width 17.5 % (11.0-16.0); White Blood Count 13.3 X10*3/uL (4.8-10.8)
[2023-10-06 12:24] VITALS: BP 134/64; PULSE 90; RESP 16; TEMP 36.9; O2SAT 98
[2023-10-06 13:06] LABS: Lymphocytes Absolute Manual 7.2 X10*3/uL (1.2-4.9); Lymphocytes Percent Manual 54 % (20-40); Monocytes Absolute Manual 1.6 X10*3/uL (0.1-1.2); Monocytes Percent Manual 12 % (2-11); Neutrophils Percent Manual 34 % (45-73)
[2023-10-06 13:07] LABS: Band Neutrophils Percent 0 % (3-5); Hypochromasia 1+ (5-14) /OIF; Neutrophils Absolute Manual 4.5 X10*3/uL (2.0-8.3); RBC Morphology NOTED
[2023-10-06 13:08] LABS: Platelet Estimate NORMAL (NORMAL); Platelet Morphology Comment NORMAL; Smudge Cells PRESENT
[2023-10-06 14:38] LABS: Bone Marrow SEE SEPARATE REPORT
[2023-10-06] MEDS: Lidocaine HCl 1 % MPF 30 ML VIAL 15 ML SUBCUT (15:33)
== END ==
LOC: HO.SSS 11:42
PROVIDERS: Pathology Anatomic Pathology & Clinical Pathology; Radiology Vascular & Interventional Radiology; PCP Internal Medicine; Visit Provider Internal Medicine
DX: C91.10 Chronic lymphocytic leukemia of B-cell type not having achieved remission (principal); D64.9 Anemia, unspecified; E78.00 Pure hypercholesterolemia, unspecified; I10 Essential (primary) hypertension; Z87.891 Personal history of nicotine dependence
CPT/HCPCS: 36415; 38222; 81455; 85007; 85027; 88184; 88185; 88237; 88264; 88305; 88311; 88313; 88341; 88342; 99152; J2250; J2310; J3010

== ENCOUNTER → 2023-10-06 13:20 | Outpatient (BNV) | payer MEDICARE, SELFPAY | PROVIDERS: PCP Internal Medicine; Visit Provider Radiology Vascular & Interventional Radiology | DX: C91.10 Chronic lymphocytic leukemia of B-cell type not having achieved remission (principal) | CPT/HCPCS: 38222; 77012; 99152 ==

== ENCOUNTER 2023-10-06 15:30 | Inpatient (IN) | payer MEDICARE, SELFPAY ==
--- NOTE | ~2023-10-06 | XR_ITS ---
EXAMINATION: XR TIBIA AND FIBULA, LEFT CLINICAL INFORMATION: Left leg redness. COMPARISON: None available. TECHNIQUE: AP and lateral views of the left tibia and fibula were obtained. FINDINGS: No fracture identified. No lytic or sclerotic bony lesion appreciated. No periosteal reaction identified. Osteoarthritis of the knee predominantly involving the medial compartment. Mild diffuse soft tissue edema. No subcutaneous gas is identified. XR/XR tibia fibula LT 2V IMPRESSION: Findings as above.
--- NOTE | ~2023-10-06 | US_ITS ---
EXAMINATION: US VENOUS ULTRASOUND WITH DOPPLER LOWER EXTREMITY, LEFT CLINICAL INFORMATION: Edema. COMPARISON: None available. TECHNIQUE: Ultrasound of the deep veins is performed from the hip to the calf with compression sonography and color and pulse Doppler assessment. Spectral analysis with color-flow imaging is performed. FINDINGS: There is normal venous compression and respiratory variation and augmented flow. The visualized common femoral vein, superficial femoral vein, profunda femoral vein, popliteal vein, and the trifurcation region shows no evidence of deep venous thrombosis. There is no significant popliteal fossa cyst. There are enlarged lymph nodes within the left groin. If the patient's symptoms persist, followup ultrasound in 5 days 7 days might be of value to exclude proximal propagation from a non-visualized calf vein. US/US venous duplex LE IMPRESSION: No DVT demonstrated in the left lower extremity. There are 2 enlarged lymph nodes within the left groin measuring up to 3.6 cm and 1.8 cm, respectively.
[2023-10-06 16:21] VITALS: BP 132/62; PULSE 80; RESP 16; TEMP 36; O2SAT 98; BMI 28.9
--- NOTE | 2023-10-06 16:28 | ED_ITS ---
HPI - General Adult General Chief complaint: Extremity Injury, Lower Stated complaint: left leg cellulitis? Time Seen by Provider: 10/06/23 20:59 Source: patient and old records reviewed Mode of arrival: ambulatory Limitations: no limitations History of Present Illness HPI narrative: 78 yo female with PMH of anemia, aortic stenosis, HTN, CAD here with c/o noting left leg swelling and redness with some chills today. It came on suddenly and has spread she has scrapes on the legs but cannot tell me why she has them. Was in hospital today for biopsy on the back and RN in post op area told her to get checked out. With the leg swelling no PAINTER, orthopnea MD complaint: leg rash Onset (ago): day(s) (1) Location: left and lower extremity Radiation: non-radiation Severity: mild Quality: aching Pain Consistency: constant Relieving factors: rest Exacerbating factors: other (palpations) Associated symptoms: fever/chills and other (leg edema) Treatments prior to arrival: none Related Data Home Medications ?Medication ?Instructions ?Recorded ?Confirmed acetaminophen 325 mg tablet 650 mg PO Q8H PRN fever/pain 10/06/23 10/06/23 allopurinol 100 mg tablet 100 mg PO DAILY 10/06/23 10/06/23 apixaban 5 mg tablet (Eliquis) 5 mg PO BID 10/06/23 10/06/23 ascorbic acid (vitamin C) 500 mg 500 mg PO DAILY 10/06/23 10/06/23 tablet (Vitamin C) folic acid 1 mg tablet 1 mg PO DAILY 10/06/23 10/06/23 furosemide 40 mg tablet 40 mg PO DAILY 10/06/23 10/06/23 metoprolol tartrate 25 mg tablet 12.5 mg PO BID 10/06/23 10/06/23 pantoprazole 40 mg tablet,delayed 40 mg PO BID@0630,1630 PRN Acid 10/06/23 10/06/23 release Reflux potassium chloride 20 mEq 20 meq PO DAILY 10/06/23 10/06/23 tablet,extended release(part/cryst) (Klor-Con M) pyridoxine (vitamin B6) 50 mg 50 mg PO DAILY 10/06/23 10/06/23 tablet sennosides 8.6 mg tablet (senna) 8.6 mg PO BID PRN Constipation 10/06/23 10/06/23 sucralfate 1 gram tablet 1 g PO QID 10/06/23 10/06/23 thiamine HCl (vitamin B1) 100 mg 100 mg PO BID 10/06/23 10/06/23 tablet Previous Rx's ?Medication ?Instructions ?Recorded ferrous sulfate 325 mg (65 mg 325 mg PO DAILY #60 tabs 02/05/22 iron) tablet (iron) Allergies Allergy/AdvReac Type Severity Reaction Status Date / Time Sulfa (Sulfonamide Allergy Intermediate HIVES Verified 10/06/23 16:26 Antibiotics) [SULFA (SULFONAMIDE ANTIBIOTICS)] pollen extracts Allergy Hives Verified 10/06/23 16:26 Review of Systems 2 Review of Systems: Constitutional : No Fever, No Chills ENT/Mouth : No sore throat, No Rhinorrhea Eyes: No Eye Pain, No Swelling, No Redness Cardiovascular : No Chest Pain, No SOB, pos edema Respiratory : No Cough, No Sputum Gastrointestinal : No Nausea, No Vomiting, No Diarrhea, No abdominal Pain Genitourinary : No Dysuria, No Hematuria Musculoskeletal : No joint pain, No Myalgias, No Joint Swelling Skin : No Skin Lesions, positive skin rash Neuro : No Weakness, No Numbness, No Headache Psych : No Anxiety, No Depression Heme/Lymph: No Bruising, No Bleeding,No Lymphadenopathy Endocrine : No Polyuria, No Polydipsia All other systems reviewed and are negative [facility] Past Medical History Attestation statement: The following information was validated with the patient. Source: old records reviewed Medical History COVID-19 vaccine series completed Osteopenia Obesity Venous insufficiency Spinal stenosis Low back pain Neuropathy Basal cell carcinoma (BCC) of face Osteoarthritis Glaucoma CAD (coronary artery disease) Elevated cholesterol HTN (hypertension) Surgical History History of bilateral YAG laser iridotomy History of surgery History of total right knee replacement (TKR) Hx of arthroscopy of left knee History of lumpectomy of left breast S/p bilateral myringotomy with tube placement Hx of cholecystectomy Family History Family History Father High blood pressure Mother High blood pressure Paternal Aunt Breast cancer Maternal Uncle Lung cancer Social History Social History Household Members: None Housing: Apartment Are you a primary resident care spec to a significant other at home: No Do you presently have visiting nurse or other home services: No Alcohol intake: current Alcohol intake frequency: holidays/special occasions only Patient Tobacco Use Status: Former Tobacco user Quit Date: 1978 Tobacco use type: Cigarette Cigarette Packs Per Day: 1 Smoked in Last 30 Days: No Use of substances other than those prescribed or required for medical reasons: No Advance Directives: No Advance Directives Information Provided: No Do you have a plan to hurt others: No Plan Nutrition Risks: No Nutritional Risk service: No Current occupational status: retired Physical Exam ED Vital Signs: Vital Signs - 24 hr 10/06/23 16:21 10/06/23 20:17 Temperature 96.8 F 98.8 F Pulse Rate 80 87 Respiratory Rate 16 16 Blood Pressure 132/62 134/62 Pulse Oximetry 98 98 Oxygen Delivery Method Room Air Room Air BMI result Body Mass Index 28.9 Appearance: Alert. Oriented X3. No acute distress. Eyes: Pupils equal, round and reactive to light. ENT: Pharynx normal. Neck: Normal inspection. Neck supple. CVS: Normal heart rate and rhythm. Pulses normal. murmur noted Respiratory: No respiratory distress. Breath sounds some rales heard in bases Abdomen: Soft and nontender. Skin: Skin warm and dry. Normal skin color. Extremities: left leg 1-2+ pitting edema left leg there is excoriated lesions noted anterior madsen no fluctuance or abscess, distal pulses intact, left leg there is erythema and warmth up to knee it is not circumferential in nature Neuro: Oriented X 3. No motor deficit. No sensory deficit. Course Course Course Narrative: RME: Triage written by BHARTI Lopez. Patient presents to the ED for left leg redness and swelling that began this morning. Patient denies any trauma, fever, chills, or calf pain. Left lower extremity positive for weeping redness with warmth. Negative for calf tenderness. Will order labs, x-ray and imaging Medications Administered Generic Name Dose Route Start Last Admin Trade Name Freq PRN Reason Stop Dose Admin Omeprazole 20 mg 10/07/23 06:30 10/07/23 05:56 Omeprazole 20 Mg Capsule. PO 20 mg BID@0630,1630 KEVIN Administration Sodium Chloride 3 ml 10/07/23 00:00 10/07/23 00:17 0.9 % Sodium Chloride Flush 3 Ml Syringe IVFLUSH Not Given QSHIFT KEVIN Discontinued Medications Generic Name Dose Route Start Last Admin Trade Name Seema PRN Reason Stop Dose Admin Furosemide 20 mg 10/06/23 21:58 10/06/23 23:00 Furosemide 20 Mg/2 Ml Vial IVPUSH 10/06/23 21:59 20 mg ONCE ONE Administration Protocol Piperacillin Sod/Tazobactam 50 mls @ 100 mls/hr 10/06/23 21:17 10/06/23 22:04 Sod 3.375 gm/ Sodium Chloride IV 10/06/23 21:46 Infused ONCE ONE Infusion Potassium Chloride 20 meq 10/06/23 21:02 10/06/23 21:34 Potassium Chloride Packet 20 Meq Packet PO 10/06/23 21:03 20 meq ONCE ONE Administration Medical Decision Making Medical Decision Making [facility] Narrative: 78 yo female with PMH of anemia, aortic stenosis, HTN, CAD here with c/o left leg swelling, redness, rash and chills concerning for cellulitis at this time leg is red and hot she has elevated wbc count and has edema and rales on exam but denies orthopnea and PAINTER - will obtain DVT study start on zosyn and IV lasix, admit for IV antibiotics Differential Diagnosis Differential Diagnoses: The differential diagnosis associated with the presentation includes DVT, cellulitis, CHF Admission/Observation Consideration of admission/observation: Escalation of care including admission/observation considered admit for diureisis, IV antibiotics Consult Healthcare Provider Management of the patient was discussed with: Hospitalist (will admit) Lab Data [facility] Lab Attestation statement: I reviewed the patient's lab results. 10/07/23 04:37 10/07/23 04:37 Labs: Lab Results 10/06/23 Range/Units 19:17 WBC 13.8 H (4.8-10.8) X10*3/uL RBC 2.93 L (4.20-5.50) X10*6/uL Hgb 9.2 L (12.0-16.0) g/dl Hct 28.0 L (37.0-47.0) % MCV 95.6 (80.0-98.0) fL MCH 31.4 (27.0-33.0) pg MCHC 32.9 (31.0-35.0) g/dl RDW 17.5 H (11.0-16.0) % Plt Count 181 (160-400) X10*3/uL MPV 12.4 H (9.4-12.3) fL Immature Gran % (Auto) 1.1 H (0.0-0.4) % Neut % (Auto) 27.5 L (45-73) % Lymph % (Auto) 43.7 H (20-40) % [place] % (Auto) 27.5 H (2-11) % Eos % (Auto) 0.1 (0-4) % Baso % (Auto) 0.1 (0-2) % Lymph # (Auto) 6.0 H (1.2-4.9) X10*3/uL [place] # (Auto) 3.8 H (0.1-1.2) X10*3/uL Eos # (Auto) 0.0 (0.0-0.4) X10*3/uL Baso # (Auto) 0.0 (0.0-0.2) X10*3/uL Abs Immat Gran (auto) 0.15 H (0.00-0.03) X10*3/uL Absolute Neuts (auto) 3.8 (2.0-8.3) x10*3/uL Absolute Nucleated RBC 0.000 (0.0-0.012) X10*3/uL Nucleated RBC % (auto) 0.0 (0.0-0.2) /100WBC Smear Tech's Comments VERIFIED ESR 92 H (0-20) MM/HR Sodium 140 (135-145) mmol/L Potassium 3.1 L (3.3-5.1) mmol/L Chloride 101 (96-108) mmol/L Carbon Dioxide 25 (22-29) mmol/L Anion Gap 17 (12-20) BUN 25 H (9-16) mg/dL Creatinine 1.81 H (0.5-1.4) mg/dL Estim Creat Clear Calc 23.3 Estimated GFR 27 Random Glucose 117 H (60-115) mg/dL Lactic Acid 1.1 (0.5-2.0) mmol/L Calcium 9.6 D (8.4-10.2) mg/dL Total Bilirubin 0.7 (0.0-1.0) mg/dL AST 33 H (5-31) U/L ALT 18 (0-31) U/L Alkaline Phosphatase 169 H (39-117) U/L C-Reactive Protein 1.98 H (< or = 0.50) mg/dL B-Natriuretic Peptide 317 H (<100) pg/mL Total Protein 7.8 (6.5-8.0) g/dL Albumin 3.5 (3.5-5.0) g/dL Independent Interpretation I performed an independent interpretation of an: EKG, Plain X-Ray (no gas) and Ultrasound (no DVT) Interpretation: Rate: 90 Rhythm: NSR [place]: normal Normal P waves. Normal CLEO. RBBB ST T wave : no EFRA, inverted t waves V1-V2 qTC: 499 prior studies: changed from 2022 but no acute ischemia on EKG The study has been interpreted contemporaneously by me. . Radiology Impression Discussion of test interpretation with radiology: I have reviewed the radiologist's reading. External Record Review External record reviewed: Inpatient record Discharge Plan Discharge Clinical Impression: Leg edema, Hypokalemia Cellulitis Qualifiers: Site of cellulitis: extremity Site of cellulitis of extremity: lower extremity Laterality: left Qualified Code(s): L03.116 - Cellulitis of left lower limb Patient Disposition: Admitted As Inpatient
--- NOTE | 2023-10-06 17:04 | MHC.EDTECH ---
Called patient three times at 1703, no answer. I also checked imaging patient was not there but did have imaging done earlier. SG
--- NOTE | 2023-10-06 19:25 | MHC.EDTECH ---
This tech brought patient into the triage area,blood cultures and labs collected and sent to lab.
[2023-10-06 19:50] LABS: Lactic Acid 1.1 mmol/L (0.5-2.0)
[2023-10-06 19:54] LABS: Alanine Aminotransferase 18 U/L (0-31); Albumin Level 3.5 g/dL (3.5-5.0); Alkaline Phosphatase 169 U/L (39-117); Anion Gap 17 (12-20); Aspartate Amino Transferase 33 U/L (5-31); Bilirubin Total 0.7 mg/dL (0.0-1.0); Blood Urea Nitrogen 25 mg/dL (9-16); C Reactive Protein 1.98 mg/dL (< or = 0.50); Calcium 9.6 mg/dL (8.4-10.2); Carbon Dioxide 25 mmol/L (22-29); Chloride 101 mmol/L (96-108); Creatinine Clr Calc Pharmacy 23.3; Estimated Glomerular Filt Rate 27; Glucose Random 117 mg/dL (60-115); Potassium 3.1 mmol/L (3.3-5.1); Sodium 140 mmol/L (135-145); Total Protein 7.8 g/dL (6.5-8.0)
[2023-10-06 20:09] LABS: Basophils Percent Auto 0.1 % (0-2); Eosinophils Percent Auto 0.1 % (0-4); Hemoglobin 9.2 g/dl (12.0-16.0); Imm Gran Abs Auto 0.15 X10*3/uL (0.00-0.03); Imm Gran Pct Auto 1.1 % (0.0-0.4); Lymphocytes Percent Auto 43.7 % (20-40); MANUAL DIFF FLAG SCAN; Mean Corpuscular HGB Conc 32.9 g/dl (31.0-35.0); Mean Corpuscular Hemoglobin 31.4 pg (27.0-33.0); Mean Corpuscular Volume 95.6 fL (80.0-98.0); Mean Platelet Volume 12.4 fL (9.4-12.3); Monocytes Absolute Auto 3.8 X10*3/uL (0.1-1.2); Monocytes Percent Auto 27.5 % (2-11); Neutrophils Absolute Auto 3.8 x10*3/uL (2.0-8.3); Neutrophils Percent Auto 27.5 % (45-73); Platelet Count 181 X10*3/uL (160-400); Red Blood Count 2.93 X10*6/uL (4.20-5.50); Red Cell Distribution Width 17.5 % (11.0-16.0); SCAN SMEAR FLAG 1
[2023-10-06 20:17] VITALS: BP 134/62; PULSE 87; RESP 16; TEMP 37.1; O2SAT 98
[2023-10-06 21:03] LABS: Erythrocyte Sedimentation Rate 92 MM/HR (0-20)
[2023-10-06 21:26] LABS: White Blood Count 13.8 X10*3/uL (4.8-10.8)
[2023-10-06 21:27] LABS: SLIDE REVIEW VERIFIED
[2023-10-06] MEDS: Piperacillin Sodium/Tazobactam 3.375 GM in 0.9 % Sodium Chloride 50 ML IV (21:34)
[2023-10-06] MEDS: Potassium Chloride Packet 20 MEQ PACKET PO (21:34)
[2023-10-06 21:49] LABS: B Type Natriuretic Peptide 317 pg/mL (<100)
--- NOTE | 2023-10-06 21:49 | PC.NURSE ---
20g IV access established in left AC to receive IV fluids/medications. Zosyn infusing as ordered by Dr. Villagomez. Also given PO Potassium 20 mEq powder as ordered. Visitor at bedside. Care ongoing by this RN.
--- NOTE | 2023-10-06 21:59 | ECG_ITS ---
Test Reason : LEG SWELLING Blood Pressure : / mmHG Vent. Rate : 090 BPM Atrial Rate : 090 BPM P-R Int : 154 ms QRS Dur : 120 ms QT Int : 408 ms P-R-T Axes : 072 082 018 degrees QTc Int : 499 ms Normal sinus rhythm with sinus arrhythmia Right bundle branch block Abnormal ECG When compared with ECG of 30-MAY-2022 14:03, Right bundle branch block is now Present Referred By: Olivia Villagomez Electronically Signed By:VEENA VÁZQUEZ MD
--- NOTE | 2023-10-06 22:41 | PHA.MEDREC ---
Pharmacy Consult ? Medication Reconciliation Pharmacy has completed the medication reconciliation. Spoke with patient in the ED who was able to confirm medications. Patient states she only takes K once daily
[2023-10-06] MEDS: Furosemide 20 MG/2 ML VIAL IVPUSH (23:00)
[2023-10-07] VITALS (7 sets, daily range): BP systolic 119–141; BP diastolic 53–73; PULSE 81–91; RESP 14–18; TEMP 36.6–37.8; O2SAT 93–98
--- NOTE | 2023-10-07 01:35 | P.HPHOSP_ITS ---
History of Present Illness Date of Service: 10/06/23 Attending physician on admission: Ora Perez Chief Complaint: Left leg redness and swelling Luiza Gaitan this is a 78 years old woman with past medical history significant for CAD, essential hypertension, moderate , CKD, hyperlipidemia and venous insufficiency presents to the emergency department complaining of left leg swelling and erythema without significant associated tenderness. She noted this today. The right leg is also minimally red and swollen. There are some abrasion with blistering noted in the anterior aspect of the left leg. She denies fevers or chills. Denies headache, palpitations or dizziness. She denied any acute cardiopulmonary, gastrointestinal or genitourinary symptoms. She drinks 2 glasses of wine daily. She is a former tobacco smoker, denies marijuana use or illicit drug use. In the ED, she was found to have normal vital signs. Blood workup is remarkable for leukocytosis of 13.8. Hemoglobin is 9.2 and at baseline. There is no thrombocytopenia. There is mild hypokalemia of 3.1. Creatinine is 1.8 (prior 2.01). AST slightly elevated, 33 as well as alk-phos. Total bilirubin, ALT are normal. CRP is 1.98. BNP is 317. Bilateral lower extremity venous ultrasound showed no DVT. Left tib/fib x-ray showed no fractures or mood changes suggesting osteomyelitis. ED tx: KCl 20 mEq p.o., Zosyn 3.375 g IV, Lasix and IV. Review of Systems 2 Review of Systems: All 12 systems were reviewed and normal except as noted in HPI. [facility] Medical History COVID-19 vaccine series completed Osteopenia Obesity Venous insufficiency Spinal stenosis Low back pain Neuropathy Basal cell carcinoma (BCC) of face Osteoarthritis Glaucoma CAD (coronary artery disease) Elevated cholesterol HTN (hypertension) Family History Father High blood pressure Mother High blood pressure Paternal Aunt Breast cancer Maternal Uncle Lung cancer Surgical History History of bilateral YAG laser iridotomy History of surgery History of total right knee replacement (TKR) Hx of arthroscopy of left knee History of lumpectomy of left breast S/p bilateral myringotomy with tube placement Hx of cholecystectomy Social History Household Members: None Housing: Apartment Are you a primary critical care registered nurse to a significant other at home: No Do you presently have visiting nurse or other home services: No Alcohol intake: current Alcohol intake frequency: holidays/special occasions only Patient Tobacco Use Status: Former Tobacco user Quit Date: 1978 Tobacco use type: Cigarette Cigarette Packs Per Day: 1 Smoked in Last 30 Days: No Use of substances other than those prescribed or required for medical reasons: No Advance Directives: No Advance Directives Information Provided: No Do you have a plan to hurt others: No Plan Nutrition Risks: No Nutritional Risk service: No Current occupational status: retired Meds Allergies Allergy/AdvReac Type Severity Reaction Status Date / Time Sulfa (Sulfonamide Allergy Intermediate HIVES Verified 10/06/23 16:26 Antibiotics) [SULFA (SULFONAMIDE ANTIBIOTICS)] pollen extracts Allergy Hives Verified 10/06/23 16:26 Active Medications: Current Medications Acetaminophen (Acetaminophen 325 Mg Tablet) 650 mg PO Q6H PRN PRN Reason: Fever, Headache, Pain 1-3 Calcium Carbonate (Calcium Carbonate 750 Mg Tab.Chew) 750 mg PO Q6H PRN PRN Reason: Heartburn Doxycycline Hyclate 100 mg/ (Sodium Chloride) 250 mls @ 166.67 mls/hr IV Q12H KEVIN Magnesium Hydroxide (Milk Of Magnesia 30 Ml Oral.Susp) 30 ml PO DAILY PRN PRN Reason: Constipation Melatonin (Melatonin 3 Mg Tablet) 6 mg PO BEDTIME PRN PRN Reason: Insomnia Polyethylene Glycol (Polyethylene Glycol 3350 17 Gm Powd.Pack) 17 gm PO DAILY PRN PRN Reason: Constipation Sodium Chloride (0.9 % Sodium Chloride Flush 3 Ml Syringe) 3 ml IVFLUSH QSHIFT COUNTS INCLUDE 234 BEDS AT THE [facility] Last Admin: 10/07/23 00:17 Dose: Not Given Home Medications ?Medication ?Instructions ?Recorded ?Confirmed ?Last Taken ?Type acetaminophen 325 mg tablet 650 mg PO Q8H PRN fever/pain 10/06/23 10/06/23 10/06/23 History allopurinol 100 mg tablet 100 mg PO DAILY 10/06/23 10/06/23 Unknown History apixaban 5 mg tablet (Eliquis) 5 mg PO BID 10/06/23 10/06/23 10/06/23 History ascorbic acid (vitamin C) 500 mg 500 mg PO DAILY 10/06/23 10/06/23 10/06/23 History tablet (Vitamin C) folic acid 1 mg tablet 1 mg PO DAILY 10/06/23 10/06/23 10/06/23 History furosemide 40 mg tablet 40 mg PO DAILY 10/06/23 10/06/23 10/06/23 History metoprolol tartrate 25 mg tablet 12.5 mg PO BID 10/06/23 10/06/23 10/06/23 History pantoprazole 40 mg tablet,delayed 40 mg PO BID@0630,1630 PRN Acid 10/06/23 10/06/23 10/06/23 History release Reflux potassium chloride 20 mEq 20 meq PO DAILY 10/06/23 10/06/23 10/06/23 History tablet,extended release(part/cryst) (Klor-Con M) pyridoxine (vitamin B6) 50 mg 50 mg PO DAILY 10/06/23 10/06/23 10/06/23 History tablet sennosides 8.6 mg tablet (senna) 8.6 mg PO BID PRN Constipation 10/06/23 10/06/23 10/06/23 History sucralfate 1 gram tablet 1 g PO QID 10/06/23 10/06/23 10/06/23 History thiamine HCl (vitamin B1) 100 mg 100 mg PO BID 10/06/23 10/06/23 10/06/23 History tablet Physical Exam 2 Vital Signs and Narrative: Vital Signs: Last Vital Signs Temp 98.8 F 10/06/23 20:17 Pulse 87 10/06/23 20:17 Resp 16 10/06/23 20:17 BP 134/62 10/06/23 20:17 Pulse Ox 98 10/06/23 20:17 O2 Del Method Room Air 10/06/23 20:17 BMI result Body Mass Index 28.9 Constitutional - Awake and Alert, No apparent distress. Cooperative. Afebrile. HEENT - Pupils equally round. Normal sclerae. Moist oral mucosa. Heart - RRR. High-pitched murmur (better heard right sternal border). Lungs - Normal lung expansion, Normal respiratory effort, No respiratory distress, CTA bilaterally Abdomen - NT / ND; +BS; No rebound or guarding Extremities: Skin - Warm/Dry. No jaundice Neurological - Alert & oriented x3. No focal weakness grossly noted. Normal speech. Psychological - Appropriate affect Results Labs 10/07/23 04:37 10/07/23 04:37 Labs: Laboratory Results - last 24 hr 10/06/23 19:17 MCV 95.6 MCH 31.4 MCHC 32.9 RDW 17.5 H Plt Count 181 MPV 12.4 H Immature Gran % (Auto) 1.1 H Neut % (Auto) 27.5 L Lymph % (Auto) 43.7 H [place] % (Auto) 27.5 H Eos % (Auto) 0.1 Baso % (Auto) 0.1 Lymph # (Auto) 6.0 H [place] # (Auto) 3.8 H Eos # (Auto) 0.0 Baso # (Auto) 0.0 Abs Immat Gran (auto) 0.15 H Absolute Neuts (auto) 3.8 Absolute Nucleated RBC 0.000 Nucleated RBC % (auto) 0.0 Smear Tech's Comments VERIFIED ESR 92 H Anion Gap 17 Estim Creat Clear Calc 23.3 Estimated GFR 27 Random Glucose 117 H Lactic Acid 1.1 Calcium 9.6 D Total Bilirubin 0.7 AST 33 H ALT 18 Alkaline Phosphatase 169 H C-Reactive Protein 1.98 H B-Natriuretic Peptide 317 H Total Protein 7.8 Albumin 3.5 Imaging Radiologist's Impressions: Impressions Tibia/Fibula X-Ray 10/06/23 16:40 IMPRESSION: Findings as above. Venous Duplex 10/06/23 17:14 IMPRESSION: No DVT demonstrated in the left lower extremity. There are 2 enlarged lymph nodes within the left groin measuring up to 3.6 cm and 1.8 cm, respectively. Assessment and Plan (1) Hypokalemia: Status: Acute (2) HTN (hypertension): Qualifiers: Hypertension type: primary hypertension Qualified Code(s): I10 - Essential (primary) hypertension Status: Acute (3) CAD (coronary artery disease): Qualifiers: Associated angina: without angina Coronary Disease-Associated Artery/Lesion type: unspecified vessel or lesion type [place] vs. transplanted heart: unspecified whether [place] or transplanted heart Qualified Code(s): I 25.10 - Atherosclerotic heart disease of [place] coronary artery without angina pectoris Status: Acute (4) Non-rheumatic aortic stenosis: Status: Acute (5) Left leg cellulitis: Status: Acute (6) Anemia: Qualifiers: Anemia type: unspecified type Qualified Code(s): D64.9 - Anemia, unspecified Status: Chronic Plan Luiza Gaitan this is a 78 y/o woman admitted with: * Left leg cellulitis. No sepsis. Admit to hospitalist service. Empiric IV antibiotic therapy with doxycycline. Blood cultures obtained -will follow results. * Coronary artery disease. Continue BB and Eliquis. * Essential hypertension. Continue metoprolol. * Gout. Continue metoprolol. * Hypokalemia. Likely secondary to Lasix use. Replete as needed. * GERD. Continue sucralfate and PPI. * Chronic anemia. Continue to monitor. * A-fib, currently rate and rhythm controlled. Continue Eliquis and metoprolol. * CKD. Continue to monitor renal function. Avoid nephrotoxic agents. * Moderate aortic stenosis. Pt follows with senior marketing data analyst as an outpatient. * HFpEF. No acute symptoms. Continue furosemide and BB. 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 Continue furosemide Code status: Full DVT prophylaxis: Alisonquis Patient will need hospitalization for at least 2 midnights for left leg cellulitis treatment with IV antibiotics in the setting of multiple medical comorbidities Quality Stroke Does the patient have a stroke diagnosis?: No VTE Prior VTE?: No VTE Risk Level:: Medical - moderate - high VTE Device Contraindication: Treatment Not Indicated VTE Drug Contraindication: N/A - Med Ordered
--- NOTE | 2023-10-07 03:22 | PC.NURSE ---
pt is a 1:1 assist as she is unsteady on her feet. while assisting pt back into bed - this RN noted 3+ pitting edema in LE bilaterally. hot to the touch. pt's LE notably red, taught, shiny and has dried/cracked open blisters on legs throughout. pt currently denies pain. has no acute complaints. no sob/wob noted. respirations even and unlabored. pt waiting for bed assignment at this time. plan of care ongoing. call neal placed within reach.
[2023-10-07 05:33] LABS: Basophils Percent Auto 0.2 % (0-2); Eosinophils Percent Auto 0.2 % (0-4); Hematocrit 23.9 % (37.0-47.0); Hemoglobin 7.8 g/dl (12.0-16.0); Imm Gran Abs Auto 0.11 X10*3/uL (0.00-0.03); Imm Gran Pct Auto 0.9 % (0.0-0.4); Lymphocytes Absolute Auto 4.8 X10*3/uL (1.2-4.9); Lymphocytes Percent Auto 41.2 % (20-40); MANUAL DIFF FLAG SCAN; Mean Corpuscular HGB Conc 32.6 g/dl (31.0-35.0); Mean Corpuscular Hemoglobin 31.2 pg (27.0-33.0); Mean Corpuscular Volume 95.6 fL (80.0-98.0); Mean Platelet Volume 12.9 fL (9.4-12.3); Monocytes Absolute Auto 3.4 X10*3/uL (0.1-1.2); Monocytes Percent Auto 28.6 % (2-11); Neutrophils Absolute Auto 3.4 x10*3/uL (2.0-8.3); Neutrophils Percent Auto 28.9 % (45-73); Platelet Count 158 X10*3/uL (160-400); Red Cell Distribution Width 17.4 % (11.0-16.0); SCAN SMEAR FLAG 1; White Blood Count 11.7 X10*3/uL (4.8-10.8)
[2023-10-07 05:53] LABS: Anion Gap 15 (12-20); Blood Urea Nitrogen 24 mg/dL (9-16); Calcium 8.9 mg/dL (8.4-10.2); Carbon Dioxide 24 mmol/L (22-29); Chloride 102 mmol/L (96-108); Creatinine Clr Calc Pharmacy 21.8; Estimated Glomerular Filt Rate 25; Glucose Random 113 mg/dL (60-115); Magnesium 2.2 mg/dL (1.6-2.6); Potassium 3.1 mmol/L (3.3-5.1); Sodium 138 mmol/L (135-145)
[2023-10-07] MEDS: Omeprazole 20 MG CAPSULE.DR PO ×2 (05:56→16:26)
--- NOTE | 2023-10-07 05:56 | PC.NURSE ---
medication administered per provider order. pt still verbalizing no complaints. resting comfortably in bed in no apparent distress. respirations remain even and unlabored. call neal placed within reach.
[2023-10-07 07:08] LABS: SLIDE REVIEW VERIFIED
[2023-10-07 08:09] LABS: Immature Retic Fraction 23.3 % (3.0-15.9); Retic HGB Equivalent 34.7 pg (30.0-35.0); Reticulocyte Percent 2.2 % (0.5-1.8); Reticulocytes Absolute 0.055 X10*6/uL (0.026-0.095)
[2023-10-07 08:19] LABS: Iron 53 mcg/dL (30-160); Lactate Dehydrogenase 263 U/L (122-220); Percent Iron Saturation 33 % (15-50); Total Iron Binding Capacity 163 mcg/dL (228-428); Unsaturated Iron Binding 110 ug/dL
[2023-10-07] MEDS: Potassium Chloride Packet 20 MEQ PACKET 40 MEQ PO (08:23)
[2023-10-07] MEDS: Folic Acid 1 MG TABLET PO (08:24)
[2023-10-07] MEDS: Apixaban 5 MG TABLET PO ×2 (08:24→21:37)
[2023-10-07] MEDS: Thiamine HCL 100 MG TABLET PO ×2 (08:24→21:37)
[2023-10-07] MEDS: Potassium Chloride ER 20 MEQ TAB.ER.PRT PO (08:24)
[2023-10-07] MEDS: allopurinoL 100 MG TABLET PO (08:24)
[2023-10-07] MEDS: Furosemide 40 MG TABLET PO (08:24)
[2023-10-07] MEDS: Ferrous Sulfate 324 MG TABLET.DR PO (08:24)
[2023-10-07] MEDS: Metoprolol Tartrate 12.5 MG HALFTAB PO ×2 (08:24→21:37)
[2023-10-07] MEDS: 0.9 % Sodium Chloride Flush 3 ML SYRINGE IVFLUSH ×3 (08:25→23:23)
[2023-10-07] MEDS: Sucralfate 1 GM TABLET PO ×4 (08:25→21:37)
[2023-10-07] MEDS: Ascorbic Acid 500 MG TABLET PO (08:25)
[2023-10-07 08:39] LABS: Ferritin 901 ng/mL (10-250)
--- NOTE | 2023-10-07 12:56 | PM.EVENT ---
Event Note Date of Service: 10/07/23 Event Note: Day hospitalist update S: no fever no trauma to leg O: Temp Pulse Resp BP Pulse Ox O2 Del Method 97.9 F 83 17 135/73 96 Room Air 10/07/23 11:25 10/07/23 11:25 10/07/23 05:39 10/07/23 11:25 10/07/23 11:25 10/07/23 11:25 Gen: in no acute distress HEENT: sclera anicteric, moist mucus membranes Neck: supple Lungs: clear to auscultation bilaterally Heart: regular rate and rhythm, no murmurs Abd: soft, non-tender, non-distended Ext: 1+ pitting bilateral leg edema Skin: warm/well-perfused, scaling on both legs, erythema of L madsen without any purulence Neuro: alert and oriented x3, no focal findings Psych: appropriate affect A/P: d1 78yo F with CAD, HTN, moderate , CKD4, HLD, venous insufficiency, CLL admitted for LLE cellulitis LLE cellulitis - change doxycycline to IV cefazolin, follow BCx hypoK - replete PO, recheck in AM CAD AF - continue metoprolol tartrate + apixaban chronic HFpEF - continue furosemide + metoprolol tartrate HTN - continue metoprolol tartrate gout - continue allopurinol GERD - continue PPI + sucralfate LUCIAN - continue Fe VTE ppx - apixaban dispo - eventual home In my clinical judgment, the patient requires continued hospitalization for the following reasons: IV ABX Time Spent With Patient Time: Total time managing care of this patient today _35___ minutes.
[2023-10-07] MEDS: Pyridoxine HCl (Vitamin B6) 50 MG TABLET PO (13:02)
--- NOTE | 2023-10-07 13:32 | MHC.CM.PN ---
Met with patient in regards to discharge planning. Patient lives alone, ambulates with a rollator and has a home health aide through [facility]. Patient states she still drives. PCP verified as Johan Husain. Copy of HCP verified to be on file. No services anticipated to be needed because patient is not homebound. IMM explained and signed. Patient's FLOORMAN will transport patient home when medically stable. Continue to monitor for d/c needs.
[2023-10-07] MEDS: Acetaminophen 325 MG TABLET 650 MG PO (23:27)
--- NOTE | 2023-10-07 23:52 | PC.NURSE ---
Addendum entered by Shaniqua Cruz 10/08/23 02:04: Pt reports effectiveness of Tylenol given. Plan of care on going. Original Note: This investment underwriter assumed care of this Pt at 2100. Pt A&Ox3, reports 9/10 LLL pain, requesting Tylenol, states anything else makes me hallucinate . Pt medicated per JUL. LLL swelling and redness noted with scabs. Pt ambulated to BR with walker, and stand by assist.
[2023-10-08] MEDS: Omeprazole 20 MG CAPSULE.DR PO ×2 (05:56→16:10)
[2023-10-08 08:00] VITALS: BP 110/58; PULSE 66; RESP 17; TEMP 36.7; O2SAT 100
[2023-10-08] MEDS: Ascorbic Acid 500 MG TABLET PO (08:25)
[2023-10-08] MEDS: allopurinoL 100 MG TABLET PO (08:26)
[2023-10-08] MEDS: Ferrous Sulfate 324 MG TABLET.DR PO (08:26)
[2023-10-08] MEDS: Apixaban 5 MG TABLET PO ×2 (08:26→21:44)
[2023-10-08] MEDS: Folic Acid 1 MG TABLET PO (08:26)
[2023-10-08] MEDS: Thiamine HCL 100 MG TABLET PO ×2 (08:26→21:44)
[2023-10-08] MEDS: 0.9 % Sodium Chloride Flush 3 ML SYRINGE IVFLUSH ×3 (08:27→21:45)
[2023-10-08 09:08] LABS: Hematocrit 28.3 % (37.0-47.0); Hemoglobin 9.3 g/dl (12.0-16.0); Mean Corpuscular HGB Conc 32.9 g/dl (31.0-35.0); Mean Corpuscular Hemoglobin 32.1 pg (27.0-33.0); Mean Corpuscular Volume 97.6 fL (80.0-98.0); Mean Platelet Volume 11.9 fL (9.4-12.3); Platelet Count 152 X10*3/uL (160-400); Red Cell Distribution Width 17.7 % (11.0-16.0); White Blood Count 13.9 X10*3/uL (4.8-10.8)
[2023-10-08 09:23] LABS: Anion Gap 15 (12-20); B Type Natriuretic Peptide 382 pg/mL (<100); Blood Urea Nitrogen 25 mg/dL (9-16); C Reactive Protein 7.93 mg/dL (< or = 0.50); Calcium 9.3 mg/dL (8.4-10.2); Carbon Dioxide 26 mmol/L (22-29); Chloride 99 mmol/L (96-108); Creatinine Clr Calc Pharmacy 19.3; Estimated Glomerular Filt Rate 22; Glucose Random 146 mg/dL (60-115); Sodium 137 mmol/L (135-145)
[2023-10-08 09:26] LABS: Potassium 2.7 mmol/L (3.3-5.1)
[2023-10-08 11:18] LABS: Folate 15.7 ng/mL (> or = 4.0); Vitamin B12 392 pg/mL (200-900)
--- NOTE | 2023-10-08 11:38 | HO.PM.IMPN ---
Subjective Subjective Date of Service: 10/08/23 Interval History: Tmax 100 at midnight Redness of leg improving No dyspnea Review of Systems Review of Systems: Yes all other systems are reviewed and are negative Physical Exam Vital Signs: Vital Signs: Last Vital Signs Temp 98.0 F 10/08/23 08:00 Pulse 66 10/08/23 08:00 Resp 17 10/08/23 08:00 BP 110/58 L 10/08/23 08:00 Pulse Ox 100 10/08/23 08:00 O2 Del Method Room Air 10/08/23 08:00 BMI result Body Mass Index 28.9 Gen: in no acute distress HEENT: sclera anicteric, moist mucus membranes Neck: supple, no JVD Lungs: clear to auscultation bilaterally Heart: regular rate and rhythm, no murmurs Abd: soft, non-tender, non-distended Ext: 1+ pitting bilateral leg edema Skin: warm/well-perfused, scaling on both legs, erythema of L madsen without any purulence, improved from yesterday Neuro: alert and oriented x3, no focal findings Psych: appropriate affect Objective Data Active Medications Acetaminophen (Acetaminophen 325 Mg Tablet) 650 mg PO Q6H PRN PRN Reason: Fever, Headache, Pain 1-3 Last Admin: 10/07/23 23:27 Dose: 650 mg Documented By: ETHAN Allopurinol (Allopurinol 100 Mg Tablet) 100 mg PO DAILY [facility] Last Admin: 10/08/23 08:26 Dose: 100 mg Documented By: NIKOLAS Apixaban (Apixaban 5 Mg Tablet) 5 mg PO BID [facility] Last Admin: 10/08/23 08:26 Dose: 5 mg Documented By: NIKOLAS Ascorbic Acid (Ascorbic Acid 500 Mg Tablet) 500 mg PO DAILY [facility] Last Admin: 10/08/23 08:25 Dose: 500 mg Documented By: NIKOLAS Calcium Carbonate (Calcium Carbonate 750 Mg Tab.Chew) 750 mg PO Q6H PRN PRN Reason: Heartburn Ferrous Sulfate (Ferrous Sulfate 324 Mg Tablet.) 324 mg PO DAILY [facility] Last Admin: 10/08/23 08:26 Dose: 324 mg Documented By: NIKOLAS Folic Acid (Folic Acid 1 Mg Tablet) 1 mg PO DAILY [facility] Last Admin: 10/08/23 08:26 Dose: 1 mg Documented By: NIKOLAS Furosemide (Furosemide 40 Mg Tablet) 40 mg PO DAILY [facility]; Protocol Last Admin: 10/07/23 08:24 Dose: 40 mg Documented By: CHARBEL Cefazolin Sodium 1 gm/ Sodium (Chloride) 50 mls @ 100 mls/hr IV Q12H [facility] Last Admin: 10/08/23 10:17 Dose: 100 mls/hr Documented By: LLOYD Magnesium Hydroxide (Milk Of Magnesia 30 Ml Oral.Susp) 30 ml PO DAILY PRN PRN Reason: Constipation Melatonin (Melatonin 3 Mg Tablet) 6 mg PO BEDTIME PRN PRN Reason: Insomnia Metoprolol Tartrate (Metoprolol Tartrate 12.5 Mg Halftab) 12.5 mg PO BID [facility]; Protocol Last Admin: 10/07/23 21:37 Dose: 12.5 mg Documented By: ETHAN Omeprazole (Omeprazole 20 Mg Capsule.Dr) 20 mg PO BID@0630,1630 [facility] Last Admin: 10/08/23 05:56 Dose: 20 mg Documented By: ETHAN Polyethylene Glycol (Polyethylene Glycol 3350 17 Gm Powd.Pack) 17 gm PO DAILY PRN PRN Reason: Constipation Potassium Chloride (Potassium Chloride Er 20 Meq Tab.Er.Prt) 20 meq PO BID [facility] Pyridoxine HCl (Pyridoxine Hcl (Vitamin B6) 50 Mg Tablet) 50 mg PO DAILY [facility] Last Admin: 10/07/23 13:02 Dose: 50 mg Documented By: ROMINA Senna (Sennosides 8.6 Mg Tablet) 8.6 mg PO BID PRN PRN Reason: Constipation Sodium Chloride (0.9 % Sodium Chloride Flush 3 Ml Syringe) 3 ml IVFLUSH QSHIFT [facility] Last Admin: 10/08/23 08:27 Dose: 3 ml Documented By: NIKOLAS Sucralfate (Sucralfate 1 Gm Tablet) 1 gm PO QID [facility] Last Admin: 10/07/23 21:37 Dose: 1 gm Documented By: ETHAN Thiamine HCl (Thiamine Hcl 100 Mg Tablet) 100 mg PO BID [facility] Last Admin: 10/08/23 08:26 Dose: 100 mg Documented By: NIKOLAS Labs 10/08/23 08:47 05/16/24 08:47 Labs: Laboratory Results - last 24 hr 10/08/23 08:47 MCV 97.6 MCH 32.1 MCHC 32.9 RDW 17.7 H Plt Count 152 L MPV 11.9 Absolute Nucleated RBC 0.000 Nucleated RBC % (auto) 0.0 Anion Gap 15 Estim Creat Clear Calc 19.3 Estimated GFR 22 Random Glucose 146 H Calcium 9.3 C-Reactive Protein 7.93 H B-Natriuretic Peptide 382 H Vitamin B12 392 Folate 15.7 Microbiology Microbiology Results: Microbiology 10/06/23 19:20 Blood Culture - Preliminary Blood - Venous No growth after 24 hours. 10/06/23 19:17 Blood Culture - Preliminary Blood - Venous No growth after 24 hours. Assessment and Plan (1) Left leg cellulitis: Status: Acute Plan d2 78yo F with CAD, HTN, moderate , CKD4, HLD, venous insufficiency, CLL, and CKD4 admitted for LLE cellulitis LLE cellulitis - IV cefazolin 10/06-, follow BCx hypoK - increase PO replacement to 20 mEq bid and give 40 mEq IV, check Mg, recheck level in AM CKD4 - SCr at baseline CAD AF - continue metoprolol tartrate + apixaban chronic HFpEF - continue furosemide + metoprolol tartrate HTN - continue metoprolol tartrate gout - continue allopurinol GERD - continue PPI + sucralfate LUCIAN - continue Fe VTE ppx - apixaban dispo - eventual home In my clinical judgment, the patient requires continued inpatient hospitalization for the following reasons: IV ABX Total time managing care of this patient today: 35 minutes. Quality Stroke Does the patient have a stroke diagnosis?: No VTE Prior VTE?: No VTE Risk Level:: Medical - moderate - high VTE Device Contraindication: Treatment Not Indicated VTE Drug Contraindication: N/A - Med Ordered
--- NOTE | 2023-10-08 11:56 | PC.NURSE ---
Assumed care of pt at 0800. Pt found to be A&O X3, Lugs clear throughout, ABD SNT, skin warm and dry mild edema to bilat lower extremities. Family in to visit. Scabbed are noted on her madsen. Pt denies pain. Multiple medications not available in the [facility], pharmcay notified and awaiting med delivery. See Critical note for potassium result details.
[2023-10-08 11:57] LABS: Magnesium 2.1 mg/dL (1.6-2.6)
[2023-10-08] MEDS: Potassium Chloride/H20 10 MEQ/100 ML PIGGYBACK 100 MEQ IV ×4 (12:05→16:11)
[2023-10-08] MEDS: Pyridoxine HCl (Vitamin B6) 50 MG TABLET PO (12:44)
[2023-10-08] MEDS: Metoprolol Tartrate 12.5 MG HALFTAB PO ×2 (12:44→21:45)
[2023-10-08 12:45] VITALS: BP 108/52
[2023-10-08] MEDS: Furosemide 40 MG TABLET PO (12:45)
[2023-10-08 12:46] VITALS: BP 108/52; PULSE 75; RESP 18; O2SAT 96
[2023-10-08] MEDS: Sucralfate 1 GM TABLET PO ×3 (14:08→21:45)
--- NOTE | 2023-10-08 14:33 | PC.NURSE ---
Addendum entered by Verenice Mejia RN 10/08/23 14:35: Late note, original note at 10/08/23 at 1230 Original Note: Patient complaining of pain in her IV site related to IV potassium. IV site assessed and no issues noted; drip rate decreased for patient comfort.
[2023-10-08 16:37] VITALS: BP 132/63; PULSE 77; RESP 22; TEMP 36.4; O2SAT 98
[2023-10-08 21:23] VITALS: BP 131/60; PULSE 80; RESP 16; TEMP 36.4; O2SAT 96
[2023-10-08] MEDS: Potassium Chloride ER 20 MEQ TAB.ER.PRT PO (21:44)
[2023-10-09] VITALS (7 sets, daily range): BP systolic 107–118; BP diastolic 53–57; PULSE 66–77; RESP 12–18; TEMP 36.2–36.5; O2SAT 94–99
[2023-10-09] MEDS: Acetaminophen 325 MG TABLET 650 MG PO (03:30)
[2023-10-09] MEDS: Omeprazole 20 MG CAPSULE.DR PO ×2 (05:45→16:14)
[2023-10-09] MEDS: 0.9 % Sodium Chloride Flush 3 ML SYRINGE IVFLUSH ×2 (07:33→16:14)
[2023-10-09 07:39] LABS: Anion Gap 12 (12-20); Blood Urea Nitrogen 24 mg/dL (9-16); Calcium 8.6 mg/dL (8.4-10.2); Carbon Dioxide 25 mmol/L (22-29); Chloride 101 mmol/L (96-108); Creatinine Clr Calc Pharmacy 22.8; Estimated Glomerular Filt Rate 26; Glucose Random 103 mg/dL (60-115); Magnesium 2.1 mg/dL (1.6-2.6); Potassium 2.8 mmol/L (3.3-5.1); Sodium 135 mmol/L (135-145)
[2023-10-09] MEDS: Pyridoxine HCl (Vitamin B6) 50 MG TABLET PO (08:23)
[2023-10-09] MEDS: allopurinoL 100 MG TABLET PO (08:23)
[2023-10-09] MEDS: Ascorbic Acid 500 MG TABLET PO (08:23)
[2023-10-09] MEDS: Potassium Chloride ER 20 MEQ TAB.ER.PRT 40 MEQ PO ×2 (08:23→21:13)
[2023-10-09] MEDS: Furosemide 40 MG TABLET PO (08:23)
[2023-10-09] MEDS: Ferrous Sulfate 324 MG TABLET.DR PO (08:23)
[2023-10-09] MEDS: Sucralfate 1 GM TABLET PO ×4 (08:23→21:11)
[2023-10-09] MEDS: Folic Acid 1 MG TABLET PO (08:23)
[2023-10-09] MEDS: Metoprolol Tartrate 12.5 MG HALFTAB PO ×2 (08:23→21:12)
[2023-10-09] MEDS: Apixaban 5 MG TABLET PO ×2 (08:24→21:12)
[2023-10-09] MEDS: Thiamine HCL 100 MG TABLET PO ×2 (08:24→21:13)
[2023-10-09] MEDS: Potassium Chloride/H20 10 MEQ/100 ML PIGGYBACK 100 MEQ IV ×4 (08:41→12:18)
--- NOTE | 2023-10-09 12:59 | P.PNIM_ITS ---
Subjective Subjective Date of Service: 10/09/23 Interval History: left leg redness improving K quite low at 2.8 no dyspnea legs swollen Review of Systems Review of Systems: Yes all other systems are reviewed and are negative Physical Exam 2 Vital Signs: Vital Signs: Last Vital Signs Temp 97.3 F 10/09/23 07:40 Pulse 67 10/09/23 07:40 Resp 18 10/09/23 07:40 BP 114/55 L 10/09/23 08:23 Pulse Ox 95 10/09/23 07:40 O2 Del Method Room Air 10/09/23 07:40 BMI result Body Mass Index 28.9 Gen: in no acute distress HEENT: sclera anicteric, moist mucus membranes Neck: supple, no JVD Lungs: clear to auscultation bilaterally Heart: regular rate and rhythm, 2/6 systolic murmur at base Abd: soft, non-tender, non-distended Ext: 1+ pitting bilateral leg edema Skin: warm/well-perfused, scaling on both legs, minimal erythema of L madsen without any purulence Neuro: alert and oriented x3, no focal findings Psych: appropriate affect Objective Data Active Medications Acetaminophen (Acetaminophen 325 Mg Tablet) 650 mg PO Q6H PRN PRN Reason: Fever, Headache, Pain 1-3 Last Admin: 10/09/23 03:30 Dose: 650 mg Documented By: NERI Allopurinol (Allopurinol 100 Mg Tablet) 100 mg PO DAILY [facility] Last Admin: 10/09/23 08:23 Dose: 100 mg Documented By: ANTOINETTE Apixaban (Apixaban 5 Mg Tablet) 5 mg PO BID [facility] Last Admin: 10/09/23 08:24 Dose: 5 mg Documented By: ANTOINETTE Ascorbic Acid (Ascorbic Acid 500 Mg Tablet) 500 mg PO DAILY [facility] Last Admin: 10/09/23 08:23 Dose: 500 mg Documented By: ANTOINETTE Calcium Carbonate (Calcium Carbonate 750 Mg Tab.Chew) 750 mg PO Q6H PRN PRN Reason: Heartburn Ferrous Sulfate (Ferrous Sulfate 324 Mg Tablet.) 324 mg PO DAILY [facility] Last Admin: 10/09/23 08:23 Dose: 324 mg Documented By: ANTOINETTE Folic Acid (Folic Acid 1 Mg Tablet) 1 mg PO DAILY [facility] Last Admin: 10/09/23 08:23 Dose: 1 mg Documented By: ANTOINETTE Furosemide (Furosemide 40 Mg Tablet) 40 mg PO DAILY [facility]; Protocol Last Admin: 10/09/23 08:23 Dose: 40 mg Documented By: ANTOINETTE Cefazolin Sodium 1 gm/ Sodium (Chloride) 50 mls @ 100 mls/hr IV Q12H [facility] Last Infusion: 10/09/23 08:29 Dose: Infused Documented By: ANTOINETTE Magnesium Hydroxide (Milk Of Magnesia 30 Ml Oral.Susp) 30 ml PO DAILY PRN PRN Reason: Constipation Melatonin (Melatonin 3 Mg Tablet) 6 mg PO BEDTIME PRN PRN Reason: Insomnia Metoprolol Tartrate (Metoprolol Tartrate 12.5 Mg Halftab) 12.5 mg PO BID [facility]; Protocol Last Admin: 10/09/23 08:23 Dose: 12.5 mg Documented By: ANTOINETTE Omeprazole (Omeprazole 20 Mg Capsule.Dr) 20 mg PO BID@0630,1630 [facility] Last Admin: 10/09/23 05:45 Dose: 20 mg Documented By: NERI Polyethylene Glycol (Polyethylene Glycol 3350 17 Gm Powd.Pack) 17 gm PO DAILY PRN PRN Reason: Constipation Potassium Chloride (Potassium Chloride Er 20 Meq Tab.Er.Prt) 40 meq PO BID [facility] Last Admin: 10/09/23 08:23 Dose: 40 meq Documented By: ANTOINETTE Pyridoxine HCl (Pyridoxine Hcl (Vitamin B6) 50 Mg Tablet) 50 mg PO DAILY [facility] Last Admin: 10/09/23 08:23 Dose: 50 mg Documented By: ANTOINETTE Senna (Sennosides 8.6 Mg Tablet) 8.6 mg PO BID PRN PRN Reason: Constipation Sodium Chloride (0.9 % Sodium Chloride Flush 3 Ml Syringe) 3 ml IVFLUSH QSHIFT [facility] Last Admin: 10/09/23 07:33 Dose: 3 ml Documented By: ANTOINETTE Sucralfate (Sucralfate 1 Gm Tablet) 1 gm PO QID [facility] Last Admin: 10/09/23 12:18 Dose: 1 gm Documented By: ANTOINETTE Thiamine HCl (Thiamine Hcl 100 Mg Tablet) 100 mg PO BID [facility] Last Admin: 10/09/23 08:24 Dose: 100 mg Documented By: ANTOINETTE Labs 10/08/23 08:47 10/09/23 05:35 Labs: Laboratory Results - last 24 hr 10/09/23 10/09/23 05:35 05:53 Hold Purple Top SEE NOTE Anion Gap 12 Estim Creat Clear Calc 22.8 Estimated GFR 26 Random Glucose 103 Calcium 8.6 D Magnesium 2.1 Microbiology Microbiology Results: Microbiology 10/06/23 19:20 Blood Culture - Preliminary Blood - Venous No growth after 48 hours. 10/06/23 19:17 Blood Culture - Preliminary Blood - Venous No growth after 48 hours. Assessment and Plan (1) Left leg cellulitis: Status: Acute Plan d3 78yo F with CAD, HTN, moderate , CKD4, HLD, venous insufficiency, CLL, and CKD4 admitted for LLE cellulitis LLE cellulitis, nonpurulent - IV cefazolin 10/06-, BCx negative, discharge on cephalexin or cefadroxil for total 7 days hypoK - increase PO replacement to 40 mEq bid and give 40 mEq IV, K 2.1, recheck K level in AM CKD4 - SCr around baseline CAD AF - continue metoprolol tartrate + apixaban chronic HFpEF - continue furosemide + metoprolol tartrate HTN - continue metoprolol tartrate gout - continue allopurinol GERD - continue PPI + sucralfate LUCIAN - continue Fe VTE ppx - apixaban dispo - PT consult pending In my clinical judgment, the patient requires continued inpatient hospitalization for the following reasons: hypoK, IV ABX Total time managing care of this patient today: 35 minutes. Quality Stroke Does the patient have a stroke diagnosis?: No VTE Prior VTE?: No VTE Risk Level:: Medical - moderate - high VTE Device Contraindication: Treatment Not Indicated VTE Drug Contraindication: N/A - Med Ordered
--- NOTE | 2023-10-09 13:13 | MHC.CM.PN ---
A PT eval has been ordered to assist with dispo. The PT eval is on hold due to low K+. Preference for STR is [facility]. A referral has been sent to [facility]. She lives in the [place]. A PT eval is required for insurance authorization. It is pending. DP To STR @ [facility] once auth obtained. Patient will travel via [facility].
[2023-10-09] MEDS: Melatonin 3 MG TABLET 6 MG PO (22:07)
[2023-10-10 06:00] VITALS: BP 113/53; PULSE 81; RESP 16; TEMP 36.4; O2SAT 95
[2023-10-10] MEDS: Acetaminophen 325 MG TABLET 650 MG PO ×2 (06:01→15:15)
[2023-10-10] MEDS: Omeprazole 20 MG CAPSULE.DR PO ×2 (06:02→15:15)
[2023-10-10 06:36] LABS: Anion Gap 13 (12-20); Blood Urea Nitrogen 21 mg/dL (9-16); C Reactive Protein 3.96 mg/dL (< or = 0.50); Calcium 8.6 mg/dL (8.4-10.2); Carbon Dioxide 22 mmol/L (22-29); Chloride 106 mmol/L (96-108); Estimated Glomerular Filt Rate 25; Glucose Random 99 mg/dL (60-115); Magnesium 2.1 mg/dL (1.6-2.6); Potassium 3.6 mmol/L (3.3-5.1); Sodium 137 mmol/L (135-145)
--- NOTE | 2023-10-10 07:16 | P.EN_ITS ---
Event Note Date of Service: 10/10/23 Event Note: Received the consult. Thank you. Detailed note to follow. LASHELL on CKD 3B. No acidosis. Magnesium OK. Ordered Aldosterone and Urine K. Needs very close follow up with [facility] after hospital D/C. Gilles Stout MD
[2023-10-10 07:42] VITALS: BP 112/55; PULSE 74; RESP 16; TEMP 36.1; O2SAT 98
[2023-10-10] MEDS: 0.9 % Sodium Chloride Flush 3 ML SYRINGE IVFLUSH (07:56)
[2023-10-10] MEDS: Ascorbic Acid 500 MG TABLET PO (07:56)
[2023-10-10 07:57] VITALS: BP 112/55
[2023-10-10] MEDS: allopurinoL 100 MG TABLET PO (07:57)
[2023-10-10] MEDS: Potassium Chloride ER 20 MEQ TAB.ER.PRT 40 MEQ PO (07:57)
[2023-10-10] MEDS: Ferrous Sulfate 324 MG TABLET.DR PO (07:57)
[2023-10-10] MEDS: Apixaban 5 MG TABLET PO (07:57)
[2023-10-10] MEDS: Pyridoxine HCl (Vitamin B6) 50 MG TABLET PO (07:57)
[2023-10-10] MEDS: Furosemide 40 MG TABLET PO (07:57)
[2023-10-10] MEDS: Metoprolol Tartrate 12.5 MG HALFTAB PO (07:57)
[2023-10-10] MEDS: Thiamine HCL 100 MG TABLET PO (07:57)
[2023-10-10] MEDS: Folic Acid 1 MG TABLET PO (07:57)
[2023-10-10] MEDS: Sucralfate 1 GM TABLET PO ×2 (07:58→12:27)
[2023-10-10 11:19] LABS: Potassium Urine Random 38.9 mmol/L
--- NOTE | 2023-10-10 13:03 | HO.PM.IMPN ---
Subjective Subjective Date of Service: 10/10/23 Interval History: Being followed for left lower extremity cellulitis, denies fever, no chills, no leg pain, unable to recall any injury, no insect bite, tolerating diet no nausea, no vomiting, no abdominal pain. Review of Systems All other system reviewed and are negative Physical Exam Vital Signs: Vital Signs: Last Vital Signs Temp 97.0 F 10/10/23 07:42 Pulse 74 10/10/23 07:42 Resp 16 10/10/23 07:42 BP 112/55 L 10/10/23 07:57 Pulse Ox 98 10/10/23 07:42 O2 Del Method Room Air 10/10/23 07:42 BMI result Body Mass Index 28.9 Const: Other: Gen: in no acute distress HEENT: sclera anicteric, moist mucus membranes Neck: supple, no JVD Lungs: clear to auscultation bilaterally Heart: regular rate and rhythm, 2/6 systolic murmur at base Abd: soft, non-tender, non-distended Ext: 1+ pitting bilateral leg edema Skin: warm/well-perfused, persistent minimal erythema of L madsen without any purulence, dry scabs left madsen Neuro: alert and oriented x3, no focal findings Psych: appropriate affect Objective Data Active Medications Acetaminophen (Acetaminophen 325 Mg Tablet) 650 mg PO Q6H PRN PRN Reason: Fever, Headache, Pain 1-3 Last Admin: 10/10/23 06:01 Dose: 650 mg Documented By: JOLLY Allopurinol (Allopurinol 100 Mg Tablet) 100 mg PO DAILY [facility] Last Admin: 10/10/23 07:57 Dose: 100 mg Documented By: COTCALVIN Apixaban (Apixaban 5 Mg Tablet) 5 mg PO BID [facility] Last Admin: 10/10/23 07:57 Dose: 5 mg Documented By: HUBERT Ascorbic Acid (Ascorbic Acid 500 Mg Tablet) 500 mg PO DAILY [facility] Last Admin: 10/10/23 07:56 Dose: 500 mg Documented By: HUBERT Calcium Carbonate (Calcium Carbonate 750 Mg Tab.Chew) 750 mg PO Q6H PRN PRN Reason: Heartburn Ferrous Sulfate (Ferrous Sulfate 324 Mg Tablet.) 324 mg PO DAILY [facility] Last Admin: 10/10/23 07:57 Dose: 324 mg Documented By: HO.COTEMA Folic Acid (Folic Acid 1 Mg Tablet) 1 mg PO DAILY [facility] Last Admin: 10/10/23 07:57 Dose: 1 mg Documented By: COTEMA Furosemide (Furosemide 40 Mg Tablet) 40 mg PO DAILY [facility]; Protocol Last Admin: 10/10/23 07:57 Dose: 40 mg Documented By: COTEMA Cefazolin Sodium 1 gm/ Sodium (Chloride) 50 mls @ 100 mls/hr IV Q12H [facility] Last Infusion: 10/10/23 08:41 Dose: Infused Documented By: COTEMA Magnesium Hydroxide (Milk Of Magnesia 30 Ml Oral.Susp) 30 ml PO DAILY PRN PRN Reason: Constipation Melatonin (Melatonin 3 Mg Tablet) 6 mg PO BEDTIME PRN PRN Reason: Insomnia Last Admin: 10/09/23 22:07 Dose: 6 mg Documented By: NERI Metoprolol Tartrate (Metoprolol Tartrate 12.5 Mg Halftab) 12.5 mg PO BID [facility]; Protocol Last Admin: 10/10/23 07:57 Dose: 12.5 mg Documented By: COTEMA Omeprazole (Omeprazole 20 Mg Capsule.Dr) 20 mg PO BID@0630,1630 [facility] Last Admin: 10/10/23 06:02 Dose: 20 mg Documented By: LYSZ Polyethylene Glycol (Polyethylene Glycol 3350 17 Gm Powd.Pack) 17 gm PO DAILY PRN PRN Reason: Constipation Potassium Chloride (Potassium Chloride Er 20 Meq Tab.Er.Prt) 40 meq PO BID [facility] Last Admin: 10/10/23 07:57 Dose: 40 meq Documented By: COTEMA Pyridoxine HCl (Pyridoxine Hcl (Vitamin B6) 50 Mg Tablet) 50 mg PO DAILY [facility] Last Admin: 10/10/23 07:57 Dose: 50 mg Documented By: COTEMA Senna (Sennosides 8.6 Mg Tablet) 8.6 mg PO BID PRN PRN Reason: Constipation Sodium Chloride (0.9 % Sodium Chloride Flush 3 Ml Syringe) 3 ml IVFLUSH QSHIFT [facility] Last Admin: 10/10/23 07:56 Dose: 3 ml Documented By: COTEMA Sucralfate (Sucralfate 1 Gm Tablet) 1 gm PO QID [facility] Last Admin: 10/10/23 12:27 Dose: 1 gm Documented By: HO.COTEMA Thiamine HCl (Thiamine Hcl 100 Mg Tablet) 100 mg PO BID [facility] Last Admin: 10/10/23 07:57 Dose: 100 mg Documented By: HUBERT Labs 10/08/23 08:47 10/10/23 05:59 Labs: Laboratory Results - last 24 hr 10/10/23 10/10/23 05:59 10:54 Hold Purple Top SEE NOTE Anion Gap 13 Estim Creat Clear Calc 22.0 Estimated GFR 25 Random Glucose 99 Calcium 8.6 Magnesium 2.1 C-Reactive Protein 3.96 H Ur Random Potassium 38.9 Assessment and Plan (1) Left leg cellulitis: Status: Acute Plan 78yo F with CAD, HTN, moderate , CKD4, HLD, venous insufficiency, CLL, and CKD4, admitted for LLE cellulitis LLE cellulitis, nonpurulent - continue IV cefazolin 10/06-, BCx negative, will discharge on cephalexin or cefadroxil for total 7 days. hypoK -likely due to diuretics treated with potassium by mouth and IV potassium improved to 3.6, follow BMP. CKD4 - SCr around baseline CAD/AF - continue metoprolol tartrate + apixaban chronic HFpEF - no acute exacerbation noted, continue furosemide + metoprolol tartrate HTN - stable bp,continue metoprolol tartrate gout - continue allopurinol GERD - continue PPI + sucralfate LUCIAN - continue Fe VTE ppx - apixaban dispo - PT consult pending In my clinical judgment, the patient requires continued inpatient hospitalization for the following reasons: IV ABX and safe disposition Total time managing care of this patient today: 35 minutes. Quality Stroke Does the patient have a stroke diagnosis?: No VTE Prior VTE?: No VTE Risk Level:: Medical - moderate - high VTE Device Contraindication: Treatment Not Indicated VTE Drug Contraindication: N/A - Med Ordered
[2023-10-10 13:26] VITALS: BP 112/55
--- NOTE | 2023-10-10 15:11 | W.MHC.F2F ---
Service Date Service Date: 10/10/23 Encounter Date of encounter: 10/10/23 Reasons for Services Signs and symptoms assessed: Left lower leg cellulitis/hypokalemia Reason for penitentiary: medication management and teach disease management Reason for physical therapy: home safety and mobility Homebound: Leaving the home is medically contraindicated at this time without the asist of a device and/or another person due th the listed conditions above and below. Reason homebound: weakness related to hospital stay Certification: Based on the above findings, I certify that this patient is confined to the home and needs intermittent penitentiary care, physical therapy and/or speech therapy, or continues to need occupational therapy. The patient is under my care, and I have initiated the establishment of the plan of care. The patient will be followed by a physician who will periodically review the plan of care. Time Spent With Patient Time: Total time managing care of this patient today ____ minutes.
--- NOTE | 2023-10-10 15:12 | PM.DS ---
DS: Providers Provider Date of Service: 10/10/23 Date of admission: 10/06/23 23:35 Primary care physician: Johan Husain DO Consults: 10/09/23 09:09 Consult to Wound Care Routine Reason for consultation: cellulitis 10/09/23 14:32 Consult to Nephrology Routine Consulting Provider: [facility] Reason for consultation: hypoK Has provider been notified: Yes DS: Diagnosis Discharge Diagnosis (1) Left leg cellulitis: Status: Acute DS: Summary Hospital Course Hospital Course: Date of Service: 10/06/23 Attending physician on admission: Ora Perez Chief Complaint: Left leg redness and swelling Luiza Gaitan this is a 78 years old woman with past medical history significant for CAD, essential hypertension, moderate , CKD, hyperlipidemia and venous insufficiency presents to the emergency department complaining of left leg swelling and erythema without significant associated tenderness. She noted this today. The right leg is also minimally red and swollen. There are some abrasion with blistering noted in the anterior aspect of the left leg. She denies fevers or chills. Denies headache, palpitations or dizziness. She denied any acute cardiopulmonary, gastrointestinal or genitourinary symptoms. She drinks 2 glasses of wine daily. She is a former tobacco smoker, denies marijuana use or illicit drug use. In the ED, she was found to have normal vital signs. Blood workup is remarkable for leukocytosis of 13.8. Hemoglobin is 9.2 and at baseline. There is no thrombocytopenia. There is mild hypokalemia of 3.1. Creatinine is 1.8 (prior 2.01). AST slightly elevated, 33 as well as alk-phos. Total bilirubin, ALT are normal. CRP is 1.98. BNP is 317. Bilateral lower extremity venous ultrasound showed no DVT. Left tib/fib x-ray showed no fractures or mood changes suggesting osteomyelitis. ED tx: KCl 20 mEq p.o., Zosyn 3.375 g IV, Lasix and IV. Hospital course: 78yo F with CAD, HTN, moderate , CKD4, HLD, venous insufficiency, CLL, and CKD4, admitted for LLE cellulitis and treated with IV cefazolin, blood cultures x2 remained negative patient noted significant improvement in redness and swelling therefore being discharged home on cefadroxil to finish a total 7 day course of antibiotics. Patient noted to have hypokalemia likely due to diuretics patient treated with potassium by mouth and IV, potassium normalized. CKD4 , kidney function remained stable In regard to atrial fibrillation recommend to continue home medication metoprolol and Eliquis chronic HFpEF - no acute exacerbation noted, continue furosemide + metoprolol tartrate gout no acute flare noted, continue allopurinol GERD - continue PPI + sucralfate In regard to history of iron deficiency anemia recommend to continue iron supplements. Time Attestation Discharge Coordination Time (in mins): 36 Quality: Safe Use of Opioids Does Pt have an Active Cancer Diagnosis on the Problem List?: No Quality: Stroke Does the patient have a stroke diagnosis?: No Physical Exam Vital Signs: Vital Signs: Last Vital Signs Temp 97.0 F 10/10/23 07:42 Pulse 74 10/10/23 07:42 Resp 16 10/10/23 07:42 BP 112/55 L 10/10/23 13:26 Pulse Ox 98 10/10/23 07:42 O2 Del Method Room Air 10/10/23 07:42 BMI result Body Mass Index 28.9 Const: Other: Gen: in no acute distress HEENT: sclera anicteric, moist mucus membranes Neck: supple, no JVD Lungs: clear to auscultation bilaterally Heart: regular rate and rhythm, 2/6 systolic murmur at base Abd: soft, non-tender, non-distended Ext: 1+ pitting bilateral leg edema Skin: warm/well-perfused, mild persistent swelling and erythema left leg with dry scabs. Neuro: alert and oriented x3, no focal findings Psych: appropriate affect DS: Data Data Completed and Pending Labs on day of discharge: Laboratory Results - last 24 hr 10/10/23 10/10/23 05:59 10:54 Hold Purple Top SEE NOTE Sodium 137 Potassium 3.6 D Chloride 106 Carbon Dioxide 22 Anion Gap 13 BUN 21 H Creatinine 1.92 H Estim Creat Clear Calc 22.0 Estimated GFR 25 Random Glucose 99 Calcium 8.6 Magnesium 2.1 C-Reactive Protein 3.96 H Ur Random Potassium 38.9 Preliminary micro results at discharge 10/06/23 19:20 Blood Culture - Preliminary Blood - Venous No growth after 48 hours. 10/06/23 19:17 Blood Culture - Preliminary Blood - Venous No growth after 48 hours. Discharge Plan Discharge Anticipated Discharge Date/Time: 10/10/23 15:00 Patient Disposition: Home Health Service Discharge Diagnosis: Left lower extremity cellulitis Hypokalemia Referrals: Michael LIMON [Outside] Johan Husain DO [Primary Care Provider] - 1 Week Discharge Medications: New cefadroxil 500 mg capsule 500 mg PO BID Qty: 8 0RF Continued ferrous sulfate [iron] 325 mg (65 mg iron) Tablet 325 mg PO DAILY Qty: 60 3RF furosemide 40 mg tablet 40 mg PO DAILY sennosides [senna] 8.6 mg tablet 8.6 mg PO BID PRN (Reason: Constipation) acetaminophen 325 mg tablet 650 mg PO Q8H PRN (Reason: fever/pain) sucralfate 1 gram tablet 1 g PO QID thiamine HCl (vitamin B1) 100 mg tablet 100 mg PO BID ascorbic acid (vitamin C) [Vitamin C] 500 mg tablet 500 mg PO DAILY pantoprazole 40 mg tablet,delayed release (DR/EC) 40 mg PO BID@0630,1630 PRN (Reason: Acid Reflux) pyridoxine (vitamin B6) 50 mg tablet 50 mg PO DAILY folic acid 1 mg tablet 1 mg PO DAILY metoprolol tartrate 25 mg tablet 12.5 mg PO BID Eliquis 5 mg tablet 5 mg PO BID allopurinol 100 mg tablet 100 mg PO DAILY Changed potassium chloride [Klor-Con M20] 20 mEq tablet,ER particles/crystals 40 meq PO DAILY Qty: 60 0RF Discharge Orders: Discharge Order (Routine); Ordered 10/10/23 Ordered By: Narda Barajas Diet: Advance to usual diet Activity on Discharge: As tolerated Stand Alone Forms: Patient Portal Discharge page Print Language: Portuguese Other Ambulatory Orders: Basic Metabolic Panel (Routine) Timeframe: [id number] Facility: [facility] - Location: Laboratory Ordered By: Narda Barajas Care Plan Goals: Left lower extremity cellulitis take by mouth antibiotic as prescribed, keep leg elevated while sitting Follow BMP in 1 week Take 2 tablets of potassium 20 mEq daily for ( total 40 mEq) Health Concerns: CLL Plan of Treatment: Follow-up with primary care physician call for appointment Follow-up with Dr. Chu as previously planned Outpatient follow-up with [facility] Dr Gonzales /Dr Phelps ,call for appointment in 1-2 weeks for low potassium Assessment: As above Discharge Date/Time: 10/10/23 15:58
--- NOTE | 2023-10-10 15:45 | MHC.CM.PN ---
PT CLEARED BY PT TO DC HOME WITH [facility] REFERRAL SENT TO DEEPTI DAUGHTER PRESENT AT DC
== END 2023-10-10 15:58 | disposition home health service (06) | DRG 603 ==
LOC: HO.ED 21:58 → HO.EDOVER 23:38 → HO.S3 10-08 13:26
PROVIDERS: Family Medicine; Internal Medicine Nephrology; Physician Assistant; Admitting Provider Internal Medicine; Emergency Provider Emergency Medicine; PCP Internal Medicine; Visit Provider Hospitalist
DX: L03.116 Cellulitis of left lower limb (principal); I13.0 Hypertensive heart and chronic kidney disease with heart failure and stage 1 through stage 4 chronic kidney disease, or unspecified chronic kidney disease; N18.4 Chronic kidney disease, stage 4 (severe); I50.32 Chronic diastolic (congestive) heart failure; C91.10 Chronic lymphocytic leukemia of B-cell type not having achieved remission; I87.2 Venous insufficiency (chronic) (peripheral); K21.9 Gastro-esophageal reflux disease without esophagitis; T50.1X5A Adverse effect of loop [high-ceiling] diuretics, initial encounter; I48.91 Unspecified atrial fibrillation; M10.9 Gout, unspecified; E87.6 Hypokalemia; I35.0 Nonrheumatic aortic (valve) stenosis; D50.9 Iron deficiency anemia, unspecified; I25.10 Atherosclerotic heart disease of native coronary artery without angina pectoris; E78.00 Pure hypercholesterolemia, unspecified; Z87.891 Personal history of nicotine dependence; Z79.01 Long term (current) use of anticoagulants; Z79.899 Other long term (current) drug therapy
CPT/HCPCS: 36415; 73590; 80048; 80053; 82088; 82607; 82728; 82746; 83540; 83605; 83615; 83735; 83880; 84133; 85025; 85027; 85045; 85652; 86140; 87040; 93005; 93971; 97162; 99221; 99285; J0690; J1940; J2543; J3480

== ENCOUNTER → 2023-10-06 21:59 | Outpatient (BNV) | payer MEDICARE, SELFPAY | PROVIDERS: Admitting Provider Internal Medicine; Emergency Provider Emergency Medicine; Visit Provider Internal Medicine Cardiovascular Disease | DX: I45.10 Unspecified right bundle-branch block (principal); R94.31 Abnormal electrocardiogram [ECG] [EKG] | CPT/HCPCS: 93010 ==

== ENCOUNTER → 2023-10-06 23:35 | Outpatient (BNV) | payer MEDICARE, SELFPAY | PROVIDERS: Admitting Provider Internal Medicine; Emergency Provider Emergency Medicine; Visit Provider Internal Medicine | DX: L03.116 Cellulitis of left lower limb (principal) | CPT/HCPCS: 99223; 99232; 99239; 99499; G0180 ==

== ENCOUNTER 2023-11-09 10:54 | Outpatient (AMB) | payer MEDICARE, SELFPAY ==
[2023-11-09 10:55] VITALS: BP 112/68; PULSE 64; BMI 27.5
--- NOTE | 2023-11-09 10:55 | A.OFFVIS_ITS ---
Vital Signs 11/09/23 10:55 Height 5 ft 1 in Weight 145 lb 8.081 oz BMI 27.5 BP 112/68 Blood Pressure Location Lt brachial Position Sitting Pulse 64 Pulse Source Pulse Oximeter Intake Visit Reasons: Follow up, had an echo at [facility] Allergies Sulfa (Sulfonamide Antibiotics) [SULFA (SULFONAMIDE ANTIBIOTICS)] Allergy (Intermediate, Verified 10/06/23 16:26) HIVES pollen extracts Allergy (Verified 10/06/23 16:26) Hives Medication List - Last Reconciled 11/09/23 by Dante Koehler MD acetaminophen 650 mg PO Q8H PRN allopurinol 100 mg PO DAILY ascorbic acid (vitamin C) (Vitamin C) 500 mg PO DAILY ferrous sulfate (iron) 325 mg PO DAILY folic acid 1 mg PO DAILY furosemide 40 mg PO DAILY metoprolol tartrate 12.5 mg PO BID pantoprazole 40 mg PO BID@0630,1630 PRN potassium chloride ER (Klor-Con M) 40 mEq (2 x 20 mEq) PO DAILY pyridoxine (vitamin B6) 50 mg PO DAILY sucralfate 1 g PO QID thiamine HCl (vitamin B1) 100 mg PO BID HPI Comments Details: Luiza returns for follow-up. In the past, had seen her for aortic stenosis. At that time, it was thought to be rather moderate in severity. It seems that she has had a few [facility] hospitalizations and other events and hence I find very confusing. Any case, was able to retrieve the last discharge summary from [facility]. In that note, there is mention of GI bleeding, anemia, LASHELL among other issues. There is also mention of atrial fibrillation and it seems that she was started on metoprolol and Eliquis for that reason. However, patient states that she also gets frequent blood transfusions. She is also having recurrent nosebleeds and even having a nosebleed currently in the clinic. The extent of the atrial fibrillation itself is unclear. [facility] Medical History Non-rheumatic aortic stenosis Anemia COVID-19 vaccine series completed Osteopenia Obesity Venous insufficiency Spinal stenosis Low back pain Neuropathy Basal cell carcinoma (BCC) of face Osteoarthritis Glaucoma CAD (coronary artery disease) Elevated cholesterol HTN (hypertension) Surgical History History of bilateral YAG laser iridotomy History of surgery History of total right knee replacement (TKR) Hx of arthroscopy of left knee History of lumpectomy of left breast S/p bilateral myringotomy with tube placement Hx of cholecystectomy Family History Father High blood pressure Mother High blood pressure Paternal Aunt Breast cancer Maternal Uncle Lung cancer Social History Household Members: None [facility]: [facility] Are you a primary hearing healthcare practitioner to a significant other at home: No Do you presently have visiting nurse or other home services: No Alcohol intake: current Alcohol intake frequency: holidays/special occasions only Patient Tobacco Use Status: Former Tobacco user Tobacco use type: Cigarette Cigarette Packs Per Day: 1 service: No Current occupational status: retired Review of Systems Const Denies weakness ENT Denies dizziness Card Denies chest pain, Denies chest pain with activity, Denies syncope, Denies rapid heart rate, Denies pedal edema, Denies edema, Denies leg edema, Denies lightheadedness, Denies palpitations, Denies dyspnea, Denies dyspnea on exertion and Denies orthopnea Resp Denies cough, Denies dyspnea and Denies dyspnea on exertion GI Denies hematochezia and Denies change in stool character Musc Denies abnormal gait, Denies muscle cramps, Denies muscle weakness, Denies numbness, Denies radiating pain into limb and Denies tingling Neuro Denies abnormal gait, Denies dizziness, Denies syncope, Denies numbness, Denies tingling and Denies weakness Endo Denies palpitations Physical Exam Vital Signs: Last Vital Signs Pulse 64 11/09/23 10:55 BP 112/68 11/09/23 10:55 BMI result Body Mass Index 27.5 Const General: comfortable and no acute distress Orientation/consciousness: patient oriented x3 HEENT Other: Unremarkable Head: Yes normal to inspection Neck Neck: Yes normal visual inspection Chest Chest palpation & inspection: normal inspection of the chest Resp Auscultation: clear to auscultation bilaterally Cardio Palpation: normal PMI Heart sounds: S1 normal heart sound present, S2 normal heart sound present, no gallops, Murmur heart sound present systolic III/ and at the right sternal border and no rubs GI Palpation (GI): Soft to palpation Back/Spine/Pelvis Other: unremarkable Skin General skin exam: no rashes or lesions noted Neuro General: patient oriented x3 Extrem General: Yes normal to inspection Psych Mental Status: mental status grossly normal Assessment & Plan Assessment & Plan (1) Non-rheumatic aortic stenosis: Code(s): I35.0 - Nonrheumatic aortic (valve) stenosis Category: Medical Plan: In a prior echocardiogram from [place], peak gradient across aortic valve was 36 mm Hg with a mean of 21 mm Hg. Calculated valve area of 0.9 sq cm. Aortic stenosis thought to be moderate. In more recent echocardiogram from [facility], gradients are lower and the severity was thought to be rather mild. Could be an underestimation. We can recheck in another 6 months to a year. (2) PAF (paroxysmal atrial fibrillation): Code(s): I48.0 - Paroxysmal atrial fibrillation Category: Medical Plan: Per documentation, it seems she might have had atrial fibrillation [facility] at which point she was put on Eliquis. However, patient needs blood transfusions and there is a history of gastric ulcer, question of GI bleed and also recurrent nosebleeds. Hence we will stop the Eliquis. We will get a Holter for atrial fibrillation burden. Okay to stay on beta-blockers. In the most recent EKG from August at [facility], underlying rhythm is sinus with right bundle-branch block pattern. (3) HTN (hypertension): Code(s): I10 - Essential (primary) hypertension Category: Medical Qualifiers: Hypertension type: primary hypertension Qualified Code(s): I10 - Essential (primary) hypertension Plan: Has been on lisinopril in the past but not in her list anymore. Stable blood pressure. Orders: Orders ECG 14 day holter monitor Today I48.0 - Paroxysmal atrial fibrillation Coding Level of Care Code Est Pt Level 4 (00571) Diagnoses Non-rheumatic aortic stenosis I35.0 PAF (paroxysmal atrial fibrillation) I48.0 Primary hypertension I10 Hypertension type: primary hypertension
== END 2023-11-09 12:39 | disposition home or self-care (01) ==
PROVIDERS: PCP Internal Medicine; Visit Provider Internal Medicine
DX: I49.1 Atrial premature depolarization (principal); I49.3 Ventricular premature depolarization
CPT/HCPCS: 93244; 99214

== ENCOUNTER → 2023-11-09 10:54 | Outpatient (BNVA) | payer MEDICARE, SELFPAY | PROVIDERS: PCP Internal Medicine; Visit Provider Internal Medicine ==

== ENCOUNTER → 2023-11-09 11:39 | Outpatient (REF) | payer MEDICARE, SELFPAY ==
--- NOTE | 2023-11-09 11:46 | HM_ITS ---
Conclusion: 1. Patient was monitored for total period of 6 days and 7 hours 2. Baseline was normal sinus rhythm with average heart rate of 67 beats per minute 3. No significant pauses noted 4. Rare PACs and PVCs noted 5. No patient reported events MTDD
== END ==
LOC: HO.CARD 11:39
PROVIDERS: PCP Nurse Practitioner Family; Visit Provider Internal Medicine
DX: I48.0 Paroxysmal atrial fibrillation (principal); I35.0 Nonrheumatic aortic (valve) stenosis; I10 Essential (primary) hypertension
CPT/HCPCS: 93246; 99212